=== PATIENT | female | born 1955 | race Caucasian/White ===

== ENCOUNTER 2018-06-29 20:16 | Outpatient (REF) | payer MEDICARE, BC, SELFPAY ==
[2018-07-01 12:29] LABS: Lyme Ab w Rflx to Lyme Confirm Negative
== END 2018-06-29 20:36 ==
LOC: NCHCN 20:16
PROVIDERS: PCP Nurse Practitioner Family; Referring Provider Physician Assistant Medical; Visit Provider Physician Assistant Medical
DX: L73.2 Hidradenitis suppurativa (principal); R53.83 Other fatigue
CPT/HCPCS: 86618

== ENCOUNTER 2018-07-02 08:05 | Emergency (ER) | payer MEDICARE, BC, SELFPAY ==
[2018-07-02 08:09] VITALS: BP 172/115; PULSE 72; RESP 16; TEMP 36.8; O2SAT 97
--- NOTE | 2018-07-02 09:08 | ED.GENADUL_ITS ---
Discharge Plan Disposition Patient Disposition: HOME Condition: Improving Discharge Details Chief Complaint: RashLesion Clinical Impression: Fatigue, Joint pain, Abdominal pain, Bacterial infection of skin Primary Care Provider: Dyana Ramirez ED Provider: Hiwot Lambert Home Meds and New Rx's Prescriptions: New cephalexin [Keflex] 500 mg capsule 500 mg PO QID 7 Days Qty: 28 RF: 0 No Action methylphenidate HCl [Concerta] 27 mg tablet extended release 24hr 27 mg PO DAILY Qty: 30 RF: 0 Atorvastatin Calcium 10 MG tablet 10 mg PO HS RF: 0 fluticasone-salmeterol [Advair Diskus] 1 EACH blister with device 2 puff Inhalation DAILY RF: 0 lisinopril 20 MG tablet 20 mg PO DAILY RF: 0 benzonatate 100 MG capsule 100 mg PO TID RF: 0 metformin 1,000 MG tablet 1,000 mg PO BID RF: 0 albuterol sulfate [ProAir RespiClick] 90 MCG aerosol powdr breath activated 90 mcg Inhalation PRN RF: 0 cephalexin 500 MG capsule 2,000 mg PO PRIOR TO DENTAL WORK RF: 0 betamethasone valerate 50 GM foam 50 gm Topical DAILY RF: 0 clotrimazole 45 GM cream 45 gm Topical PRN RF: 0 clobetasol-emollient 50 GM foam 50 gm Topical PRN RF: 0 Lorazepam 1 MG tablet 1 mg PO 1-2@HS Qty: 60 RF: 1 nitroglycerin 0.4 mg Tablet, Sublingual 0.4 mg SUBLINGUAL DIRECTED PRNRF: 0 metoprolol tartrate 25 mg Tablet 25 mg PO HS RF: 0 aspirin [Aspirin Low Dose] 81 mg Tablet,Delayed Release (Dr/Ec) 81 mg PO DAILY RF: 0 Discharge Instructions Instructions: Abdominal Pain (ED), Arthralgia (ED), Fatigue (ED) Additional Instructions: Drink plenty of fluids and get plenty of rest. Alternate Tylenol and Motrin as needed and directed for pain. Take the Vicodin that you have at home for pain not relieved with Tylenol or Motrin. Be sure to not take too much Tylenol as the Vicodin contains Tylenol. Take no more than 3000 mg Tylenol daily. Follow-up with your primary care doctor in 1 week for reevaluation and for results of your Lyme titer test. Return to the emergency department with any worsening or new concerning symptoms. Discharge Data Discharge Physician: Hiwot Lambert Medical Decision Making 62-year-old female with a history of diabetes, CAD, anxiety, diverticulitis who presents for multiple complaints. Her main complaint is diffuse abdominal pain which she described as constant, tearing and in the lower abdomen for the past 3 days. States it is worse with walking, sitting and with bumps in the robot driving. States it is better when lying on her left side. She states she has had boils across her lower abdomen for the past 3-6 weeks for which she saw her primary care doctor twice this week. She was given an antibiotic shot of which she does not know the name as well as clindamycin p.o. She stopped taking the antibiotic 2 days ago due to nausea, and the concern that she thinks this caused her lower abdominal pain. She states she does feel that her lower abdominal pain has improved since stopping the antibiotic. She does also admit to a multitude of other complaints including fatigue, aching joints, and decreased appetite over the past few weeks. She states she also talked to her primary care doctor for this and is concerned about possible Lyme disease. She states they rah a Lyme titer this week but she does not know the result. She otherwise denies known fever, chest pain, shortness of breath, urinary symptoms or diarrhea. She states her glucose has been between 120 and 150 Her multiple areas of skin infection are very minimally tender and do not appear significant. There is no indication for incision and drainage. She states overall she feels that they are improving. She does have an allergy to an antibiotic but does not know the name. She states she has tolerated Keflex in the past when she takes this for dental procedures due to her previous history of knee replacement. She last took Keflex 6 weeks ago. I discussed with patient that due to her multitude of complaints, we may not find the cause of everything. However as she is mainly complaining of lower abdominal pain and is concerned about a possible abscess due to her boils, or diverticulitis as she has had a previous history, we will place an IV, labs, urinalysis, CT abdomen to assess for diverticulitis versus a deeper skin infection. We can also rule out anemia, electrolyte abnormality, and altered kidney function or UTI. We will also give bolus IV fluids as well as Toradol. 1040 --patient states she feels much better and feels good to go home. Labs reviewed and unremarkable. Normal white blood cell count, electrolytes, lipase , urinalysis. CT negative for any acute process. We discussed at length that her symptoms could possibly be due to the clindamycin as she relates that they seem to have started after she started the antibiotics. She is instructed to stop this. We discussed that her multiple pannus boils do not appears significantly infected and there is no obvious abscess on CT. Patient is concerned about them worsening and with her history of knee replacement. Daughter states she has had reactions to antibiotics in the past with prolonged use, and agrees she would prefer Keflex. We discussed that as she takes this every 6 months to a year prophylactically but only for 1 day, it may not significantly work but due to the risk benefit ratio, agree that this would be the best choice at this time. Patient does have Vicodin at home that she has used in the past for her back pain. She is instructed to take this as needed for any significant pain. She otherwise is instructed to alternate Tylenol and Motrin. She is instructed to follow-up with her primary care doctor in 1 week for reevaluation and to return here with any worsening symptoms. HPI General Mode of arrival: ambulatory . Date/Time Provider Initiated Documentation: 07/02/18 08:18 . Limitations to Documentation: no limitations . Information obtained by: patient . HPI Narrative: Patient is a 62-year-old female with a history of asthma, anxiety , coronary artery disease, diabetes and diverticulitis who presents for multiple complaints. She admits to boils of her pannus for the past 3-6 weeks. She states she has these frequently but they became worse over the past 3 weeks. She usually can treated with hot compresses, Neosporin and corn starch. She saw her PCP for this on Wednesday and was given an antibiotic shot of which she does not know the name as well as a prescription for clindamycin p.o. She states she feels like she has had a reaction to the antibiotics and that it is because decreased appetite, abdominal pain, joint pain and a bad taste in her mouth . She stopped taking the clindamycin 2 days ago. She states she then followed up with her PCP again this week complaining of fatigue and they rah a Lyme titer. She had this done due to a previous complaint of a tick bite 1 year ago. She denies any known fever, bull's-eye rash. She states her abdominal pain is deep and feels like a tearing inside . And is located across her lower abdomen for the past 3 days. She states her last bowel movement was yesterday and denies any rectal bleeding. She describes the abdominal pain is constant, worse with walking, sitting and bumps in the road, and better with laying on her left side. She denies any nausea, vomiting, diarrhea. She saw her PCP again 2 days ago for the same complaint and was not given any additional treatment. She called the PCP office today and they were referred to the ER for further evaluation including possible labs or imaging if indicated. Past medical history: Asthma, anxiety, CAD, diabetes, diverticulitis Surgical history: Total knee replacement on left, tubal ligation Social history, smokes tobacco, denies alcohol or drug use Medications: See list Allergies: None none, but she thinks she might be allergic to an antibiotic. PCP: Dr. Meghann Miner Related Data Home Medications Medication Instructions Recorded Confirmed Atorvastatin Calcium 10 mg PO HS tab-cap 02/02/18 07/02/18 albuterol sulfate [Proair 90 mcg INHALATION PRN 02/02/18 07/02/18 Respiclick] benzonatate 100 mg PO TID tab-cap 02/02/18 07/02/18 betamethasone valerate 50 gm TOPICAL DAILY script 02/02/18 07/02/18 cephalexin 2,000 mg PO PRIOR TO DENTAL WORK 02/02/18 07/02/18 tab-cap clobetasol-emollient 50 gm TOPICAL PRN script 02/02/18 07/02/18 clotrimazole 45 gm TOPICAL PRN script 02/02/18 07/02/18 fluticasone-salmeterol [Advair 2 puff INHALATION DAILY disk 02/02/18 07/02/18 250/50 Diskus] lisinopril 20 mg PO DAILY tab-cap 02/02/18 07/02/18 metformin 1,000 mg PO BID tab-cap 02/02/18 07/02/18 methylphenidate ER 27 mg 27 mg PO DAILY #30 tab-cap 06/23/18 07/02/18 tablet,extended release 24 hr aspirin [Aspirin Low Dose] 81 mg PO DAILY 07/02/18 07/02/18 cephalexin [Keflex] 500 mg PO QID 7 Days #28 cap 07/02/18 metoprolol tartrate 25 mg PO HS 07/02/18 07/02/18 nitroglycerin 0.4 mg SUBLINGUAL DIRECTED PRN 07/02/18 07/02/18 Previous Rx's Medication Instructions Recorded methylphenidate ER 27 mg 27 mg PO DAILY #30 tab-cap 06/23/18 tablet,extended release 24 hr cephalexin [Keflex] 500 mg PO QID 7 Days #28 cap 07/02/18 Allergies Allergy/AdvReac Type Severity Reaction Status Date / Time No Known Allergies Allergy Unverified 07/02/18 08:21 General Stated Complaint: RashLesion ANIKA: 3 PFSH Social History Smoking/Tobacco Use Status: Current every day Course Vital Signs Temperature 98.2 F 07/02/18 08:09 Pulse 72 07/02/18 08:09 Respiratory Rate 16 07/02/18 08:09 Blood Pressure 172/115 H 07/02/18 08:09 Pulse Oximetry 97 07/02/18 08:09 Temperature 98.2 F 07/02/18 08:09 Temperature Source Temporal Artery Scan 07/02/18 08:09 Pulse 72 07/02/18 08:09 Respiratory Rate 16 07/02/18 08:09 Respiratory Effort Non-Labored 07/02/18 08:14 Blood Pressure 172/115 H 07/02/18 08:09 Pulse Oximetry 97 07/02/18 08:09 Oxygen Delivery Method Room Air 07/02/18 08:09 Oxygen Flow Rate 0 07/02/18 08:09 Pain Level 5 07/02/18 08:09
[2018-07-02 09:12] LABS: Abs Immature Grans 0.03 k/cumm (0.0-0.09); Absolute Basophil Count 0.06 k/cumm (0.0-0.2); Absolute Eosinophil Count 0.29 k/cumm (0.0-0.7); Absolute Lymphocyte Count 2.36 k/cumm (1.2-3.4); Absolute Monocyte Count 0.73 k/cumm (0.11-0.7); Basophils % 0.8; HCT 44.9 % (36.0-46.0); HGB 15.7 g/dL (12.0-15.5); Immature Grans % 0.4; Lymphocytes % 32.5; Mean Corpuscular Hemoglobin 32.6 pg (27.0-33.0); Mean Corpuscular Volume 93.2 fL (80-95); Mean Platelet Volume 10.2 fL (8.0-11.0); Neutrophils % 52.3; Platelet Count 248 x1000/uL (130-400); RBC 4.82 m/cumm (4.00-5.20); RBC Distribution Width 12.4 % (11.7-14.6); White Blood Cell Count 7.27 k/cumm (4.4-10.8)
[2018-07-02] MEDS: Ketorolac 30 MG/ML VIAL IVP (09:13)
[2018-07-02 09:14] LABS: Bilirubin Negative (Negative); Blood Negative (Negative); Clarity Clear; Glucose Negative (Negative); Ketones Negative (Negative); Leukocyte Esterase Negative (Negative); Nitrite Negative (Negative); Urobilinogen 0.2 EU/dL (Up TO 0.2); pH 5.5 (5-8)
[2018-07-02] MEDS: Normal Saline 250 ML 500 ML IV (09:14)
[2018-07-02 09:25] LABS: ALT 39 U/L (12-78); AST 24 U/L (15-37); Albumin 3.4 g/dL (3.4-5.0); Alkaline Phosphatase 71 U/L (46-116); Anion Gap 9.2 mmol/L (3-11); BUN 16 mg/dL (7-18); Bilirubin, Total 0.5 mg/dL (0.2-1.0); CO2 26.8 mmol/L (21.0-32.0); CREATININE 0.72 mg/dL (0.55-1.02); Calcium 8.9 mg/dL (8.5-10.1); Chloride 103 mmol/L (98-107); Glucose 157 mg/dL (70-100); Lipase 105 U/L (73-393); Potassium 4.3 mmol/L (3.5-5.1); Sodium 139 mmol/L (136-145); Total Protein 7.3 g/dL (6.4-8.2)
--- NOTE | 2018-07-02 10:00 | DI.CT_ITS ---
SYMPTOM/DIAGNOSIS: DIFFUSE ABD PAIN, SKIN ABSCESS, WORSE IN LOWER ABD. ABDOMINAL AND PELVIC CT: 07/02 CT examination was performed with a bolus infusion of 100 cc of Omnipaque 350. Images obtained through the lung bases were unremarkable. There are marked degenerative changes of the lumbosacral spine. Liver may be mildly enlarged and there is probable hepatic steatosis. Spleen is unremarkable in appearance. Gallbladder is absent. No biliary dilatation seen. Pancreas is unremarkable in appearance. No gross abdominal or pelvic adenopathy seen. Appendix is not specifically visualized but there is no evidence of appendicitis or diverticulitis. No evidence of bowel obstruction. Adrenals and kidneys are unremarkable in appearance. No evidence of urinary tract obstruction or calcification. Small fat containing ventral hernia noted. CONCLUSION: No evidence of acute intra-abdominal process.
--- NOTE | 2018-07-02 10:13 | DI.VRAD_ITS ---
EXAM: CT Abdomen and Pelvis With Intravenous Contrast EXAM DATE/TIME: 07/02/2018 9:10 AM CLINICAL HISTORY: 62 years old, female; Pain; Abdominal pain; Generalized; Patient HX: Diffuse abdominal pain, skin asbscess, worse in lower abdomen. Pain x2 days. TECHNIQUE: Axial computed tomography images of the abdomen and pelvis with intravenous contrast. All CT scans at this facility use at least one of these dose optimization techniques: automated exposure control; mA and/or kV adjustment per patient size (includes targeted exams where dose is matched to clinical indication); or iterative reconstruction. Coronal and sagittal reformatted images were created and reviewed. CONTRAST: 100 ml of omnipaque 350 administered intravenously. COMPARISON: CT ABD PELVIS WITH CONTRAST 08/11/2011 5:56 PM FINDINGS: Lower thorax: No acute findings. ABDOMEN: Liver: Normal. No mass. Gallbladder and bile ducts: Absent gallbladder consistent with previous cholecystectomy. Pancreas: Normal. No ductal dilation. Spleen: Normal. No splenomegaly. Adrenals: Normal. No mass. Kidneys and ureters: Normal. No hydronephrosis. Stomach and bowel: Moderate diverticulosis. Appendix: No evidence of appendicitis. PELVIS: Bladder: Unremarkable as visualized. Reproductive: Unremarkable as visualized. ABDOMEN and PELVIS: Intraperitoneal space: Normal. No free air. No significant fluid collection. Bones/joints: Moderate to severe multilevel degenerative changes including degenerative disc disease, spondylosis and facet degenerative changes. Soft tissues: Small umbilical/periumbilical hernia containing fat. Vasculature: There are one or more calcified pelvic phleboliths. Calcification of the abdominal aorta and/or iliac arteries consistent with atherosclerotic vessel disease. Lymph nodes: Normal. No enlarged lymph nodes. IMPRESSION: Moderate diverticulosis. Dictated and Authenticated by: Adán Hutchinson MD. Ordering:WALE BRIONES MD
[2018-07-02 10:57] VITALS: BP 139/86; PULSE 60; RESP 16; TEMP 36.8; O2SAT 96
== END 2018-07-02 11:10 | disposition home or self-care (01) ==
PROVIDERS: Emergency Provider Physician Assistant; PCP Nurse Practitioner Family
DX: R53.83 Other fatigue (principal); R10.30 Lower abdominal pain, unspecified; L08.9 Local infection of the skin and subcutaneous tissue, unspecified; M25.50 Pain in unspecified joint; T36.8X5A Adverse effect of other systemic antibiotics, initial encounter; E11.9 Type 2 diabetes mellitus without complications; Z79.84 Long term (current) use of oral hypoglycemic drugs
CPT/HCPCS: 36415; 80053; 83690; 96361; 96374; 99285; 74177; 81003; 85025; 99281; J1885

== ENCOUNTER 2018-07-29 00:44 | Outpatient (CLI) | payer MEDICARE, BC, SELFPAY ==
--- NOTE | 2018-07-29 13:00 | DI.CT_ITS ---
SYMPTOMS/DIAGNOSIS: F/U LUNG NODULE, R91.[address]: CT examination of the chest was performed without contrast administration using low dose scanning protocol. Previous chest CT of 01/24/2018 showed a 4 mm right middle lobe intrapulmonary nodule. This is again seen on today's examination and is unchanged. No new nodule identified in either lung. No pleural effusion. No mediastinal or hilar mass. CONCLUSION: Stable 4 mm right middle lobe nodule. Follow-up CT recommended in 12 months. Lung-RAD Category: 3- Probably Benign Lung- RAD Management of Findings: Continue annual LDCT screening in 12 months
== END 2018-07-29 01:04 ==
PROVIDERS: PCP Nurse Practitioner Family; Visit Provider Physician Assistant Medical
DX: R91.1 Solitary pulmonary nodule (principal)
CPT/HCPCS: 71250

== ENCOUNTER 2018-09-15 21:16 | Outpatient (REF) | payer MEDICARE, BC, SELFPAY ==
[2018-09-15 21:57] LABS: ALT 42 U/L (12-78); AST 19 U/L (15-37); Albumin 3.7 g/dL (3.4-5.0); Alkaline Phosphatase 60 U/L (46-116); BUN 17 mg/dL (7-18); Bilirubin, Total 0.6 mg/dL (0.2-1.0); CREATININE 0.67 mg/dL (0.55-1.02); Calcium 9.3 mg/dL (8.5-10.1); Chloride 102 mmol/L (98-107); Creatine Kinase 87 U/L (26-192); Glucose 146 mg/dL (70-100); Potassium 4.1 mmol/L (3.5-5.1); Sodium 140 mmol/L (136-145)
[2018-09-15 22:22] LABS: Abs Immature Grans 0.01 k/cumm (0.0-0.09); Absolute Basophil Count 0.03 k/cumm (0.0-0.2); Absolute Eosinophil Count 0.16 k/cumm (0.0-0.7); Absolute Lymphocyte Count 2.49 k/cumm (1.2-3.4); Absolute Monocyte Count 0.68 k/cumm (0.11-0.7); Absolute Neutrophil Count 3.85 k/cumm (1.2-6.7); Basophils % 0.4; Eosinophils % 2.2; HCT 44.6 % (36.0-46.0); HGB 15.6 g/dL (12.0-15.5); Immature Grans % 0.1; Lymphocytes % 34.5; Mean Corpuscular Hemoglobin 32.7 pg (27.0-33.0); Mean Corpuscular Volume 93.5 fL (80-95); Mean Platelet Volume 10.9 fL (8.0-11.0); Monocytes % 9.4; Neutrophils % 53.4; Platelet Count 224 x1000/uL (130-400); RBC 4.77 m/cumm (4.00-5.20); RBC Distribution Width 12.6 % (11.7-14.6); White Blood Cell Count 7.22 k/cumm (4.4-10.8)
[2018-09-15 23:35] LABS: ESR 14 MM/HR (0-30)
== END 2018-09-15 21:36 ==
LOC: NCHCN 21:16
PROVIDERS: PCP Nurse Practitioner Family; Visit Provider Nurse Practitioner Family
DX: R19.7 Diarrhea, unspecified (principal)
CPT/HCPCS: 80053; 82550; 85652; 85025

== ENCOUNTER 2018-09-19 11:13 | Outpatient (REF) | payer MEDICARE, BC, SELFPAY ==
[2018-09-20 11:01] LABS: Campylobacter PCR SEE COMMENTS; Salmonella PCR SEE COMMENTS; Shiga Toxin PCR SEE COMMENTS; Shigella/Enteroinvasive Ecoli SEE COMMENTS
[2018-09-22 11:59] LABS: Helicobacter pylori Ag, Feces Positive (NEGAT)
== END 2018-09-19 11:33 ==
LOC: NCHCN 11:13
PROVIDERS: PCP Nurse Practitioner Family; Visit Provider Nurse Practitioner Family
DX: R19.7 Diarrhea, unspecified (principal)
CPT/HCPCS: 87338; 87505; 82272; 83630

== ENCOUNTER 2018-11-17 10:59 | Outpatient (REF) | payer MEDICARE, BC, SELFPAY ==
[2018-11-17 21:21] LABS: Abs Immature Grans 0.07 k/cumm (0.0-0.09); Absolute Basophil Count 0.04 k/cumm (0.0-0.2); Absolute Eosinophil Count 0.22 k/cumm (0.0-0.7); Absolute Lymphocyte Count 3.07 k/cumm (1.2-3.4); Absolute Neutrophil Count 5.74 k/cumm (1.2-6.7); Basophils % 0.4; Eosinophils % 2.2; HCT 45.7 % (36.0-46.0); HGB 15.6 g/dL (12.0-15.5); Immature Grans % 0.7; Lymphocytes % 30.9; Mean Corp. HGB Concentration 34.1 g/dL (32.0-36.0); Mean Corpuscular Hemoglobin 32.2 pg (27.0-33.0); Mean Corpuscular Volume 94.4 fL (80-95); Mean Platelet Volume 10.8 fL (8.0-11.0); Neutrophils % 57.8; Platelet Count 262 x1000/uL (130-400); RBC 4.84 m/cumm (4.00-5.20); RBC Distribution Width 12.7 % (11.7-14.6); White Blood Cell Count 9.94 k/cumm (4.4-10.8)
[2018-11-17 21:44] LABS: TSH 0.97 uIU/mL (0.358-3.74)
[2018-11-17 22:07] LABS: Hemoglobin A1C 7.4 % (4.5-6.2)
== END 2018-11-17 11:19 ==
LOC: NCHCN 10:59
PROVIDERS: PCP Nurse Practitioner Family; Visit Provider Nurse Practitioner Family
DX: R53.83 Other fatigue (principal); R10.13 Epigastric pain; E11.9 Type 2 diabetes mellitus without complications
CPT/HCPCS: 83036; 84443; 85025

== ENCOUNTER 2018-11-21 14:55 | Outpatient (REF) | payer MEDICARE, BC, SELFPAY ==
[2018-11-24 14:39] LABS: Helicobacter pylori Ag, Feces Positive (NEGAT)
== END 2018-11-21 15:15 ==
LOC: NCHCO 14:55
PROVIDERS: PCP Nurse Practitioner Family; Visit Provider Nurse Practitioner Family
DX: R10.13 Epigastric pain (principal)
CPT/HCPCS: 87338

== ENCOUNTER 2018-12-28 12:16 | Outpatient (RCR) | payer SELFPAY | END 2019-01-01 23:59 | disposition home or self-care (01) | LOC: CR 12:16 | PROVIDERS: Visit Provider Family Medicine | DX: Z51.89 Encounter for other specified aftercare (principal) ==

== ENCOUNTER 2019-01-03 10:51 | Outpatient (REF) | payer MEDICARE, BC, SELFPAY ==
[2019-01-04 15:01] LABS: Helicobacter pylori Ag, Feces Positive (NEGAT)
== END 2019-01-03 11:11 ==
LOC: NCHCN 10:51
PROVIDERS: PCP Nurse Practitioner Family; Visit Provider Nurse Practitioner Family
DX: B96.81 Helicobacter pylori [H. pylori] as the cause of diseases classified elsewhere (principal)
CPT/HCPCS: 87338

== ENCOUNTER 2019-01-26 10:00 | Outpatient (RCR) | payer SELFPAY ==
--- NOTE | 2019-01-10 11:13 | PR3E_ITS ---
Sirisha Guo is a 63 year old female referred to our Diabetes Exercise program by her primary provider, Bella TOLENTINO. PMH: Anxiety, PTSD, depression, diverticulosis, ADD, RLS, HTN,HCL, STABLE ANGINA, GOUT, DJD, bilateral total knee replacements, Diabetes, , obesity, current smoker, sleep apnea 01/03/19: Pt presented for pre program intake, completed intake assessments, reviewed program description and expectations, and signed consents. At intake: Height 65 inches, Weight 249 lbs, BMI 41.4, BP 138/85, HR 66 bpm, Oxygen 96% on room air. Education: handout (living well with diabetes) provided, diabetes and exercise, and pt had an appointment set up on 01/04/19 w/ case management re:nutrition at her primary providers office. First day of Exercise: Patient presented on 01/10/19 for her first day of exercise. Pt appropriately filling out workbook with daily blood sugars and exercise. Resting vital signs: 145/87, HR 60, Blood sugar 121 (@ home), weight 244lbs.Pt tolerated 26 minutes of exercise in 6-7 minute increments on the treadmill, stationary bike, NuStep, and UBE. Her HR w/ exercise was 58-65 bpm, BP w/ exercise was 135-160/77-85. AGA scale ratings 9-11. Pt had no adverse signs or symptoms with exercise. She verbalized that her meeting at her primary cares office about diabetic diet went very well, she is keeping a daily food log and logging her sugars and exercise on a daily basis. Will continue to monitor, support, and encourage lifestyle modifications, diet, and exercise.
== END 2019-01-31 23:59 | disposition home or self-care (01) ==
LOC: CR 10:00
PROVIDERS: Visit Provider Family Medicine
DX: Z51.89 Encounter for other specified aftercare (principal)

== ENCOUNTER 2019-01-26 22:35 | Outpatient (REF) | payer MEDICARE, BC, SELFPAY | END 2019-01-26 22:55 | LOC: NCHCN 22:35 | PROVIDERS: PCP Nurse Practitioner Family; Visit Provider Nurse Practitioner Family | DX: N89.8 Other specified noninflammatory disorders of vagina (principal) | CPT/HCPCS: 87480; 87510; 87660 ==

== ENCOUNTER 2019-02-28 09:40 | Emergency (ER) | payer MEDICARE, BC, SELFPAY ==
[2019-02-28 09:50] VITALS: BP 182/88; PULSE 61; RESP 16; TEMP 36.6; O2SAT 98
[2019-02-28 09:58] LABS: Bilirubin Negative (Negative); Blood Negative (Negative); Clarity Clear; Glucose 500 mg/dL (Negative); Ketones Negative (Negative); Leukocyte Esterase Negative (Negative); Nitrite Negative (Negative); Urobilinogen 0.2 EU/dL (Up TO 0.2)
--- NOTE | 2019-02-28 10:26 | DI.CT_ITS ---
SYMPTOMS/DIAGNOSIS: LT FLANK PAIN, HX DIVERTIC, EVAL FOR DIVERTIC/STONES CT SCAN OF THE ABDOMEN AND PELVIS: CT scan of the abdomen and pelvis was performed following the uneventful administration of intravenous contrast material. Comparison is 07/02/18. No acute findings are seen in the lung bases. The liver is normal in size. No suspicious hepatic mass is seen. The portal, superior mesenteric and splenic veins are patent. The gallbladder appears absent. No biliary ductal dilatation is seen. The pancreas spleen and adrenal glands are unremarkable as are the kidneys, ureters and bladder. The reproductive organs are unremarkable. There is diverticulosis of the colon but evidence of acute diverticulitis. No evidence of bowel obstruction or inflammation. No findings to suggest an acute appendicitis are present. No significant abdominal or pelvic adenopathy, ascites or pneumoperitoneum is present. The abdominal aorta shows no aneurysmal dilatation. There is a fat containing umbilical hernia which is small. Degenerative changes are seen in the spine. IMPRESSION: No evidence of an acute abdominal or pelvic process. The findings were discussed with the emergency department on the date of the examination.
--- NOTE | 2019-02-28 10:51 | ED.GENADUL_ITS ---
Discharge Plan Disposition Patient Disposition: HOME Condition: Good Discharge Details Chief Complaint: Abd Prob Clinical Impression: Chronic left flank pain Primary Care Provider: Bella Coronado ED Provider: Chris Euceda Home Meds and New Rx's Prescriptions: New lidocaine [Lidoderm] 1 PATCH patch 1 patch Topical Q24H Qty: 4 RF: 0 No Action atorvastatin 10 mg tablet 10 mg PO DAILY RF: 0 mirtazapine 15 mg tablet 15 mg PO DAILY Qty: 30 RF: 3 fluticasone propion-salmeterol [Advair Diskus] 1 EACH blister with device 2 puff Inhalation DAILY RF: 0 metformin 1,000 MG tablet 1,000 mg PO BID RF: 0 ProAir RespiClick 90 MCG aerosol powdr breath activated 90 mcg Inhalation PRN RF: 0 cephalexin 500 MG capsule 2,000 mg PO PRIOR TO DENTAL WORK RF: 0 betamethasone valerate 50 GM foam 50 gm Topical DAILY RF: 0 clotrimazole 45 GM cream 45 gm Topical PRN RF: 0 clobetasol-emollient 50 GM foam 50 gm Topical PRN RF: 0 lisinopril 20 mg tablet 40 mg PO DAILY RF: 0 methylphenidate HCl [Concerta] 27 mg tablet extended release 24hr 27 mg PO DAILY MDD 1 Qty: 30 RF: 0 omega-3 fatty acids [Fish Oil Concentrate] 1,000 mg Capsule 1,000 mg PO BID RF: 0 carvedilol 3.125 mg Tablet 1 mg BID RF: 0 ranitidine HCl 75 mg Tablet 75 mg PO DAILY RF: 0 cholecalciferol (vitamin D3) [Vitamin D3] 400 unit Tablet 400 unit PO DAILY RF: 0 Jardiance 10 mg Tablet 10 mg PO DAILY RF: 0 nitroglycerin 0.4 mg Tablet, Sublingual 0.4 mg SUBLINGUAL DIRECTED PRNRF: 0 aspirin [Aspirin Low Dose] 81 mg Tablet,Delayed Release (Dr/Ec) 81 mg PO DAILY RF: 0 Discharge Instructions Instructions: Abdominal Pain (ED) Additional Instructions: Please follow-up with your manager terminal at your scheduled appointment. Please use the Lidoderm patch as directed. If you notice any worsening of your symptoms, or any new symptoms such as vomiting, diarrhea, fever, chills, shortness of breath, chest pain, numbness, weakness, or fainting , please return immediately to the emergency department for reevaluation. Please follow up with your primary care provider as soon as possible for reassessment and reevaluation. As always, it was a pleasure participating in your medical care today. Referrals: Bella Coronado [Primary Care Provider] - Medical Decision Making This is a pleasant 63-year-old female with past medical history of asthma, anxiety, coronary artery disease, diabetes and diverticulitis who presents today for evaluation of left-sided abdominal pain and flank pain that is been present for the last 4 to 5 weeks. Is been relatively unchanged as of late, however while she was at a physical activity event here at the hospital she developed slight worsening of the pain, she discussed it with the nursing staff there they recommended she come for further evaluation. She states that it is not severe, it is slightly improved when she stretches it. She denies any red flags of abdominal bowel complaints, urinary complaints, vaginal discharge or vomiting. Symptoms are both chronic as well as slightly atypical. Differential is most likely musculoskeletal, however also includes diverticulitis, renal stone, or gastritis. Get a CT scan to rule out colitis or stone, formal laboratory work-up, and give Lidoderm patch. 12:35 PM On reassessment the patient has mild improvement with a Lidoderm patch. Laboratory work-up has returned, no white count, no anemia, electrolyte abnormality, renal dysfunction, or urinary abnormality. Troponin normal, EKG benign. Lipase normal. CT scan per Dr. Jackson of radiology shows no acute process to explain the patient's symptoms. I had a long conversation with the patient, she still continues to demonstrate a nonsurgical nonacute abdomen on exam. Signs and symptoms are certainly concerning for muscle strain, however adhesions is also on the differential. She is able to tolerate p.o. well, vital signs are normal. Signs and symptoms are inconsistent with ACS. She does have a colonoscopy scheduled within the month. At this time with a benign work-up I do feel that she can be discharged home with close follow-up. We discussed red flags which to return. I have extensively reviewed the treatment plan and discharge instructions with the patient. I have addressed all patient concerns at this time. The patient was made aware of what symptoms to monitor for that would warrant a return to the emergency department. Discussed the plan with the patient, they demonstrate verbal understanding and agreement with our assessment and plan at this time. EKG 10: 33 Rate 52, intervals normal, sinus bradycardia, no significant ST elevations or depressions, no T wave inversions. HPI General Date/Time Provider Initiated Documentation: 02/28/19 09:41 . HPI Narrative: Patient is a 63-year-old female with a history of asthma, anxiety, coronary artery disease, diabetes and diverticulitis who presents today for evaluation of left flank pain. The patient states she has a history of notably chronic pain in her left side, she has been worked up multiple times, most recently she had 3 separate treatments for Helicobacter pylori. She did have some improvement of her symptoms a few weeks ago, however over the last 3 to 4 weeks it has returned. She denies any vomiting or diarrhea but does admit to mild nausea. She denies any dysuria or hematuria or vaginal discharge. She was at her cardiac activity center today and while doing activity she had slight to minimal worsening of this chronic pain. Worse in the left flank. Improved with stretching. She denies any associated numbness tingling or weakness. She denies any chest pain, chest heaviness, chest tightness or bandlike sensation. She denies any pain to her arm neck or shoulders. She has no other complaints or modifying factors at this time. She states that this does not feel like her previous cardiac episode. Related Data Home Medications Medication Instructions Recorded Confirmed albuterol sulfate [Proair 90 mcg INHALATION PRN 02/02/18 02/28/19 Respiclick] betamethasone valerate 50 gm TOPICAL DAILY script 02/02/18 02/28/19 cephalexin 2,000 mg PO PRIOR TO DENTAL WORK 02/02/18 02/28/19 tab-cap clobetasol-emollient 50 gm TOPICAL PRN script 02/02/18 02/28/19 clotrimazole 45 gm TOPICAL PRN script 02/02/18 02/28/19 fluticasone propion-salmeterol 2 puff INHALATION DAILY disk 02/02/18 02/28/19 [Advair 250/50 Diskus] metformin 1,000 mg PO BID tab-cap 02/02/18 02/28/19 aspirin [Aspirin Low Dose] 81 mg PO DAILY 07/02/18 02/28/19 nitroglycerin 0.4 mg SUBLINGUAL DIRECTED PRN 07/02/18 02/28/19 atorvastatin 10 mg tablet 10 mg PO DAILY 08/01/18 02/28/19 lisinopril 20 mg tablet 40 mg PO DAILY tab-cap 08/01/18 02/28/19 mirtazapine 15 mg tablet 15 mg PO DAILY #30 tab 08/24/18 02/28/19 methylphenidate ER 27 mg 27 mg PO DAILY #30 tab MDD 1 02/03/19 02/28/19 tablet,extended release 24 hr carvedilol 1 mg BID 02/28/19 02/28/19 cholecalciferol (vitamin D3) 400 unit PO DAILY 02/28/19 02/28/19 [Vitamin D3] empagliflozin [Jardiance] 10 mg PO DAILY 02/28/19 02/28/19 lidocaine [Lidoderm] 1 patch TOPICAL Q24H #4 patch 02/28/19 omega-3 fatty acids [Fish Oil 1,000 mg PO BID 02/28/19 02/28/19 Concentrate] ranitidine HCl 75 mg PO DAILY 02/28/19 02/28/19 Previous Rx's Medication Instructions Recorded mirtazapine 15 mg tablet 15 mg PO DAILY #30 tab 08/24/18 methylphenidate ER 27 mg 27 mg PO DAILY #30 tab MDD 1 02/03/19 tablet,extended release 24 hr lidocaine [Lidoderm] 1 patch TOPICAL Q24H #4 patch 02/28/19 Allergies Allergy/AdvReac Type Severity Reaction Status Date / Time clindamycin Allergy Intermediate Unverified 02/28/19 12:41 codeine Allergy Intermediate Unverified 02/28/19 12:41 metronidazole [From Flagyl] Allergy Intermediate Unverified 02/28/19 12:41 tetracycline Allergy Intermediate Unverified 02/28/19 12:41 acetaminophen [From Vicodin] Allergy Mild Unverified 02/28/19 12:41 bupropion [From Wellbutrin] Allergy Mild Unverified 02/28/19 12:41 fluoxetine [From Prozac] Allergy Mild Unverified 02/28/19 12:41 hydrocodone [From Vicodin] Allergy Mild Unverified 02/28/19 12:41 tramadol [From Ultram] Allergy Mild Unverified 02/28/19 12:41 venlafaxine [From Effexor] Allergy Mild Unverified 02/28/19 12:41 ziprasidone [From Geodon] Allergy Mild Unverified 02/28/19 12:41 General Stated Complaint: Abd Prob ANIKA: 3 Review of Systems Review of Systems All systems reviewed & are unremarkable except as noted in HPI and below PFSH Medical History Urinary incontinence (Chronic) Diverticulitis (Chronic) COPD (chronic obstructive pulmonary disease) (Chronic) Tobacco use (Acute) Depression (Chronic) Pelvic organ prolapse quantification stage 2 cystocele (Acute) Angina pectoris, unspecified (Chronic) Diabetes (Chronic) Elevated lipids (Chronic) Hypertension (Chronic) Abdominal pain (Acute) Abscess (Acute) Bruxism (teeth grinding) (Acute) Chest pain (Acute) Chronic myocardial ischemia (Acute) Fibroid uterus (Acute) Hidradenitis suppurativa (Acute) Lung nodule (Acute) Malaise and fatigue (Acute) Menopause (Acute) Pelvic pain (Acute) Post traumatic stress disorder (PTSD) (Acute) Snoring (Acute) Umbilical hernia (Acute) Anxiety (Chronic) Diverticulitis (Chronic) ALEA (obstructive sleep apnea) (Chronic) Obesity (Chronic) Surgical History Total knee replacement status (Acute) S/p bilateral carpal tunnel release (Acute) Hx of cholecystectomy (Chronic) History of bilateral tubal ligation (Inactive) Family History Mother Breast cancer Daughter Blood clotting disorder Other Diabetes Hypertension Social History Smoking/Tobacco Use Status: Current every day Tobacco Type: cigarettes Smoking cigarettes per day: 10 Drug use: Never Household members: spouse Number of Children: 4 Do you feel safe in your relationship?: Yes Female Reproductive History Menstrual Menopause type: natural History History 3 Para 3 Hx # Term Pregnancies Multiple births Hx # Pregnancies Ectopic pregnancies AB induced Hx Number of Living Children 4 AB spontaneous Exam Narrative Exam Narrative: 1.Const: Well-nourished, Well-developed, appearing stated age 2.Eyes: PERRL, no conjunctival injection, and symmetrical lids. 3.ENT: Atraumatic external nose and ears. Moist MM. Neck: Symmetric, trachea midline, No thyromegaly. 4.CVS: +S1/S2, No murmurs or gallops. Peripheral pulses 2+ and equal in all extremities. Brisk capillary refill in all extremities. 5.RESP: Unlabored respiratory effort. Clear to auscultation bilaterally. No wheezes rales or rhonchi 6.GI: Soft, Nondistended, No hepatosplenomegaly. No guarding or rebound. Mild left-sided abdominal tenderness, mild left CVA tenderness. Negative obturator and psoas sign. No pain at McBurney's point, negative Zavaleta sign. 7.MSK: Normocephalic/Atraumatic, Extremities w/o deformity or ttp No cyanosis or clubbing, Normal movement of all extremities 8.Skin: Warm, Dry. No rashes or lesions. 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 Sensation grossly intact, no focal neurologic deficits. 10.Psych: (AAO) x3. Appropriate mood and affect Course Vital Signs Temperature 36.6 C 02/28/19 09:50 Pulse 61 02/28/19 09:50 Respiratory Rate 16 02/28/19 09:50 Blood Pressure 182/88 H 02/28/19 09:50 Pulse Oximetry 98 02/28/19 09:50 Temperature 36.6 C 02/28/19 09:50 Temperature Source Skin 02/28/19 09:50 Pulse 61 02/28/19 09:50 Respiratory Rate 16 02/28/19 09:50 Respiratory Effort Non-Labored 02/28/19 09:50 Blood Pressure 182/88 H 02/28/19 09:50 Blood Pressure Position Sitting 02/28/19 09:50 Pulse Oximetry 98 02/28/19 09:50 Oxygen Delivery Method Room Air 02/28/19 09:50 Oxygen Flow Rate 0 02/28/19 09:50 Pain Level 7 02/28/19 09:50 Lab/Test Results Lab/Test Results: Laboratory Tests Range/Units 02/28/19 08:45 Urine Color (Yellow) Yellow Urine Clarity Clear Urine pH (5-8) 5.0 Ur Specific [place] (1.005-1.025) 1.010 Urine Protein (Negative) mg/dL Negative Urine Ketones (Negative) mg/dL Negative Urine Blood (Negative) Negative Urine Nitrite (Negative) Negative Urine Bilirubin (Negative) Negative Urine Urobilinogen (Up TO 0.2) EU/dL 0.2 Ur Leukocyte Esterase (Negative) Negative Urine Glucose (Negative) mg/dL 500 H
[2019-02-28] MEDS: Lidocaine 5% Patch 1 PATCH TP (11:02)
[2019-02-28 11:06] LABS: Abs Immature Grans 0.01 k/cumm (0.0-0.09); Absolute Basophil Count 0.04 k/cumm (0.0-0.2); Absolute Eosinophil Count 0.21 k/cumm (0.0-0.7); Absolute Lymphocyte Count 3.13 k/cumm (1.2-3.4); Absolute Monocyte Count 0.76 k/cumm (0.11-0.7); Absolute Neutrophil Count 3.69 k/cumm (1.2-6.7); Basophils % 0.5; Eosinophils % 2.7; HCT 45.8 % (36.0-46.0); HGB 15.9 g/dL (12.0-15.5); Immature Grans % 0.1; Lymphocytes % 39.9; Mean Corp. HGB Concentration 34.7 g/dL (32.0-36.0); Mean Corpuscular Hemoglobin 32.4 pg (27.0-33.0); Mean Corpuscular Volume 93.3 fL (80-95); Mean Platelet Volume 10.4 fL (8.0-11.0); Monocytes % 9.7; Neutrophils % 47.1; Platelet Count 255 x1000/uL (130-400); RBC 4.91 m/cumm (4.00-5.20); RBC Distribution Width 12.4 % (11.7-14.6); White Blood Cell Count 7.84 k/cumm (4.4-10.8)
[2019-02-28 11:16] LABS: ALT 38 U/L (12-78); AST 19 U/L (15-37); Albumin 3.7 g/dL (3.4-5.0); Alkaline Phosphatase 58 U/L (46-116); BUN 20 mg/dL (7-18); Bilirubin, Total 0.4 mg/dL (0.2-1.0); CREATININE 0.69 mg/dL (0.55-1.02); Calcium 9.3 mg/dL (8.5-10.1); Chloride 101 mmol/L (98-107); Glucose 108 mg/dL (70-100); Lipase 109 U/L (73-393); Potassium 4.2 mmol/L (3.5-5.1); Sodium 137 mmol/L (136-145); Total Protein 7.3 g/dL (6.4-8.2)
[2019-02-28 11:19] LABS: Troponin I < 0.02 ng/mL (0.00-0.06)
[2019-02-28] MEDS: Omnipaque 350 MG/ML 100 ML BTL IJ (11:37)
[2019-02-28 12:57] VITALS: BP 182/88; PULSE 61; RESP 16; TEMP 36.6; O2SAT 98
== END 2019-02-28 12:58 | disposition home or self-care (01) ==
PROVIDERS: Emergency Provider Student in an Organized Health Care Education/Training Program; PCP Nurse Practitioner Family
DX: R10.12 Left upper quadrant pain (principal); G89.29 Other chronic pain; R11.0 Nausea; E11.9 Type 2 diabetes mellitus without complications; Z79.84 Long term (current) use of oral hypoglycemic drugs; J44.9 Chronic obstructive pulmonary disease, unspecified; F17.210 Nicotine dependence, cigarettes, uncomplicated
CPT/HCPCS: 36415; 80053; 83690; 93005; 99285; 74177; 81003; 84484; 85025; 93010; 99284; J3490

== ENCOUNTER 2019-03-02 13:37 | Outpatient (RCR) | payer SELFPAY ==
--- NOTE | 2019-03-02 13:28 | PR3E_ITS ---
Sirisha is a 66 year old female who was referred to our 8 week diabetes management exercise program in December 2018. Patient was scheduled for 16 exercise sessions from 01/10/19 - 03/02/19, of which she attended 13. The patient had intermittent compliance with using the diabetes exercise booklet. She reported she was completing the booklet but often left it at home. The patient verbalized that she had enough equipment at home to continue exercising on her own. She was given a complete exercise prescription that included 8 - 10 total body resistance and balance exercise 2 - 3 days per week for 1 - 2 sets of 8 - 12 repetitions with 1 - 2 minute rests in between sets. She was also prescribed to aim for 150 minutes per week of moderate physical activity at an RPE of 12 - 13 on the AGA 6 - 20 scale. This could be achieved with small bouts of 10 - 30 minutes on most days of the week. Also, she was prescribed 8 - 10 static stretches to be completed after each exercise session held to mild discomfort for 2 - 4 sets lasting 10 - 30 seconds each. To complete this prescription she verbalized that she has equipment at home such as, small free weights, resistance bands, a rowing machine, an elliptical and a balance board. She also plans to add in walking and swimming during the Summer months. The patient verbalized that she was willing and able to give this prescription a try, and she was going to set goals for herself moving forward. She was also given suggestions of local community-based exercise programs should she want to vary her physical activity. Patient verbalized understanding of all exercises prescribed and demonstrations were completed. We will assist her again in the future, with a physicians referral, should she need more structure in developing an exercise routine/habits. Note: Exercise regimen closely monitored by cardiac rehabilitation internal salesperson Flor Ann who directed and prescribed patients home exercise plan.
== END 2019-03-03 23:59 | disposition home or self-care (01) ==
LOC: CR 13:37
PROVIDERS: PCP Nurse Practitioner Family; Visit Provider Family Medicine
DX: Z51.89 Encounter for other specified aftercare (principal)

== ENCOUNTER 2019-05-08 09:05 | Outpatient (REF) | payer MEDICARE, BC, SELFPAY ==
[2019-05-08 22:24] LABS: HDL Cholesterol 32 mg/dL (40-60); LDL CHOLESTEROL 74 mg/dL (<100)
== END 2019-05-08 09:25 ==
LOC: NCHCN 09:05
PROVIDERS: PCP Nurse Practitioner Family; Visit Provider Nurse Practitioner Family
DX: E78.5 Hyperlipidemia, unspecified (principal); L30.9 Dermatitis, unspecified
CPT/HCPCS: 83721; 83718

== ENCOUNTER 2019-08-07 01:28 | Outpatient (CLI) | payer MEDICARE, BC, SELFPAY ==
--- NOTE | 2019-08-07 14:56 | DI.CTLCSR_ITS ---
EXAM: CT CHEST LUNG CANCER SCREEN CLINICAL HISTORY: LUNG NODULE, R91.8,RML LUNG NODULE 4 MM NOTED LAST YR,FORMER SMOKER,Z87.891 TECHNIQUE: Low-dose noncontrast. COMPARISON: CT CHEST WO from 07/29/2018 FINDINGS: There is a stable, smoothly marginated, 4 millimeter nodule seen adjacent to the pleura in the right middle lobe. No new pulmonary nodules are seen. There is no evidence of infiltrates, pleural or pe ricardial effusions. No adenopathy is seen. Coronary artery calcifications are again noted. IMPRESSION: Lung rads category 2, yearly low-dose screening CT is recommended. Lung RADS Cat 2 - Benign Appearance / Behavior: Nodules with a very low likelihood of becoming a clin ically active caner due to size or lack of growth.
== END 2019-08-07 01:48 ==
PROVIDERS: PCP Nurse Practitioner Family; Visit Provider Nurse Practitioner Family
DX: Z12.2 Encounter for screening for malignant neoplasm of respiratory organs (principal); R91.8 Other nonspecific abnormal finding of lung field; Z87.891 Personal history of nicotine dependence
CPT/HCPCS: G0297

== ENCOUNTER 2019-10-09 10:11 | Outpatient (REF) | payer MEDICARE, BC, SELFPAY ==
[2019-10-09 21:59] LABS: Vitamin D 25 Total 21.4 ng/ml (30-100)
[2019-10-09 22:07] LABS: Ferritin 100 ng/mL (8-252); Magnesium 1.4 mg/dL (1.8-2.4)
== END 2019-10-09 10:31 ==
LOC: NCHCN 10:11
PROVIDERS: PCP Nurse Practitioner Family; Visit Provider Nurse Practitioner Family
DX: E11.9 Type 2 diabetes mellitus without complications (principal); G25.81 Restless legs syndrome; E55.9 Vitamin D deficiency, unspecified; B35.4 Tinea corporis; L21.9 Seborrheic dermatitis, unspecified
CPT/HCPCS: 82306; 82728; 83735

== ENCOUNTER 2020-06-12 10:22 | Outpatient (REF) | payer MEDICARE, BC, SELFPAY ==
[2020-06-12 21:39] LABS: HCT 47.2 % (36.0-46.0); HGB 16.3 g/dL (11.2-15.7); MCH 33.2 pg (27.0-33.0); MCHC 34.5 % (32.0-36.0); MCV 96.1 fL (80-95); Platelet Count 240 10^3/uL (130-400); RBC 4.91 10^6/uL (3.93-5.22); RDW 12.6 % (11.7-14.6); RDW-SD 44.7 fL; WBC 7.47 10^3/uL (4.4-10.8)
[2020-06-12 22:17] LABS: ALT 31 U/L (14-59); AST 13 U/L (15-37); HDL Cholesterol 32 mg/dL (40-60); LDL CHOLESTEROL 80 mg/dL (<100); Magnesium 1.8 mg/dL (1.8-2.4); TSH 1.01 uIU/mL (0.36-3.74); Vitamin B12 748 pg/mL (193-986)
[2020-06-12 22:35] LABS: Creatine Kinase 96 U/L (26-192)
== END 2020-06-12 10:42 ==
LOC: NCHCN 10:22
PROVIDERS: PCP Nurse Practitioner Family; Visit Provider Nurse Practitioner Family
DX: E78.5 Hyperlipidemia, unspecified (principal); E61.2 Magnesium deficiency; Z79.899 Other long term (current) drug therapy; R53.83 Other fatigue; I10 Essential (primary) hypertension
CPT/HCPCS: 82550; 83721; 85027; 82607; 83718; 83735; 84443; 84450; 84460

== ENCOUNTER 2020-07-25 09:16 | Outpatient (CLI) | payer MEDICARE, BC, SELFPAY ==
[2020-07-28 02:58] LABS: Patient Race White; SARS-CoV-2 RNA Undetected (Undetected); SARS-CoV-2 Specimen Source Nasal
== END 2020-07-25 09:36 ==
PROVIDERS: PCP Nurse Practitioner Family; Visit Provider Nurse Practitioner Family
DX: J06.9 Acute upper respiratory infection, unspecified (principal)
CPT/HCPCS: U0003

== ENCOUNTER 2020-08-06 10:05 | Emergency (ER) | payer MEDICARE, BC, SELFPAY ==
[2020-08-06 10:09] VITALS: BP 148/104; PULSE 70; RESP 18; TEMP 36.6; O2SAT 99
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
--- NOTE | 2020-08-06 10:15 | RT.EKG_ITS ---
APPROVED REPORT Exam: Resting ECG Patient Location: E HR:59 bpm ECG Measurements Heart Rate 59 AXIS MI 155 P 53 QRSd 98 QRS -5 QT 379 T 23 QTc 377 Conclusion Sinus bradycardia. Rate 60, No st elevation
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
[2020-08-06 11:40] VITALS: BP 146/90; PULSE 70; RESP 18; TEMP 36.6; O2SAT 99
== END 2020-08-06 11:25 | disposition home or self-care (01) ==
PROVIDERS: Emergency Provider Emergency Medicine; PCP Nurse Practitioner Family
DX: S16.1XXA Strain of muscle, fascia and tendon at neck level, initial encounter (principal); S20.212A Contusion of left front wall of thorax, initial encounter; V43.52XA Car driver injured in collision with other type car in traffic accident, initial encounter; E11.9 Type 2 diabetes mellitus without complications; Z79.84 Long term (current) use of oral hypoglycemic drugs; J44.9 Chronic obstructive pulmonary disease, unspecified; F17.210 Nicotine dependence, cigarettes, uncomplicated; I10 Essential (primary) hypertension; R51.9 Headache, unspecified
CPT/HCPCS: 93005; 99284; 70450; 71046; 72125; 93010

== ENCOUNTER 2020-08-15 13:03 | Outpatient (CLI) | payer MEDICARE, BC, SELFPAY ==
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
== END 2020-08-15 13:23 ==
PROVIDERS: PCP Nurse Practitioner Family; Visit Provider Nurse Practitioner Family
DX: M54.5 Low back pain (principal); M47.816 Spondylosis without myelopathy or radiculopathy, lumbar region; M16.0 Bilateral primary osteoarthritis of hip; R10.32 Left lower quadrant pain
CPT/HCPCS: 72110; 72220; 73502

== ENCOUNTER 2020-08-28 00:35 | Outpatient (CLI) | payer MEDICARE, BC, SELFPAY ==
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
== END 2020-08-28 00:55 ==
PROVIDERS: PCP Nurse Practitioner Family; Visit Provider Nurse Practitioner Family
DX: M48.061 Spinal stenosis, lumbar region without neurogenic claudication (principal); M51.16 Intervertebral disc disorders with radiculopathy, lumbar region
CPT/HCPCS: 72148

== ENCOUNTER 2020-12-17 20:39 | Outpatient (REF) | payer MEDICARE, BC, SELFPAY ==
[2020-12-17 19:42] LABS: Anion Gap 12.2 mmol/L (3-11); BUN 20 mg/dL (7-18); CO2 24.8 mmol/L (21.0-32.0); CREATININE 0.8 mg/dL (0.55-1.02); Chloride 102 mmol/L (98-107); Glucose 182 mg/dL (74-106); Potassium 4.4 mmol/L (3.5-5.1); Sodium 139 mmol/L (136-145)
== END 2020-12-17 20:40 | disposition home or self-care (01) ==
LOC: NCHCN 20:39
PROVIDERS: PCP Nurse Practitioner Family; Visit Provider Nurse Practitioner Family
DX: I10 Essential (primary) hypertension (principal)
CPT/HCPCS: 80048

== ENCOUNTER 2021-03-26 01:30 | Outpatient (CLI) | payer MEDICARE, BC, SELFPAY ==
--- NOTE | 2021-03-26 09:04 | DI.CTLCSR_ITS ---
Exam(s) CT CHEST LUNG CANCER SCREEN EXAM: CT CHEST LUNG CANCER SCREEN CLINICAL HISTORY: SCREENING FOR LUNG CA, CURRENT SMOKER, F17.210. TECHNIQUE: Imaging Protocol: Low Dose Technique CONTRAST MATERIAL: None COMPARISON: CT CT CHEST LUNG CANCER SCREEN from 08/07/2019 FINDINGS: CHEST: LUNGS: There is again noted a stable subpleural 4 millimeter noncalcified nodule in the lateral segme nt of the right middle lobe, again unchanged. A pseudo nodule at the pleural reflection between the right upper and right middle lobes is also unchanged. There are no new nodules in either lung field. Unchanged benign-appearing markings are seen medially adjacent to the spinal column in the right lo wer lobe. No pleural effusions. MEDIASTINUM: There is no obvious hilar nor mediastinal adenopathy. CARDIAC: Heart size is normal. There is no pericardial effusion.Caliber of the thoracic aorta is wit hin normal limits. OTHER: OSSEOUS: No significant osseous lesions.. IMPRESSION: 1. Stable benign-appearing findings, as described above. 2. No new nodules, pleural effusions, nor intrathoracic adenopathy. 3. Lung RADS Cat 2 - Benign Appearance / Behavior: Nodules with a very low likelihood of becoming a c linically active cancer due to size or lack of growth Lung-RADS 1.0 CATEGORIES: Category 0 - Prior chest CT exam(s) being located for comparison. Category 1 - Annual screening in 12 months. No nodules or definitely benign nodules. Category 2 - Annual screening in 12 months. Benign appearance. Nodules with low likelihood of becomin g active cancer. Category 3 - 6-month follow-up. Probably benign. Short-term follow-up suggested. Nodules with low lik elihood of becoming active cancer. Category 4A - 3-month follow-up and CT/PET if >8 mm in size. Suspicious finding. Findings which requi re additional testing. Category 4B - Findings which require additional testing and tissue sampling. Modifier S- Potentially clinically significant findings (non lung cancer) RADIATION DOSE DELIVERED: 98.86mGy.cm Total DLP 2.21mGy CTDIvol DATA REPOSITORY: All CT scans at this facility are submitted to the National Radiology Data Registry (NRDR) Dose Index Registry (DIR) with the [employer] ([employer]). RADIATION OPTIMIZATION: All CT scans at this facility use at least one of these dose optimization te chniques: automated exposure control; mA and/or kV adjustment per patient size (includes targeted exa ms where dose is matched to clinical indication); or iterative reconstruction.
== END 2021-03-26 01:50 ==
PROVIDERS: PCP Nurse Practitioner Family; Visit Provider Nurse Practitioner Family
DX: Z12.2 Encounter for screening for malignant neoplasm of respiratory organs (principal); R91.8 Other nonspecific abnormal finding of lung field; F17.210 Nicotine dependence, cigarettes, uncomplicated
CPT/HCPCS: 71271

== ENCOUNTER 2021-06-11 10:34 | Outpatient (REF) | payer MEDICARE, BC, SELFPAY ==
[2021-06-11 17:04] LABS: HCT 47.6 % (36.0-46.0); HGB 16.5 g/dL (11.2-15.7); MCHC 34.7 % (32.0-36.0); MCV 95.2 fL (80-95); MPV 10.9 fL (8.0-11.0); Platelet Count 234 10^3/uL (130-400); RDW 12.2 % (11.7-14.6); RDW-SD 42.9 fL; WBC 7.84 10^3/uL (4.4-10.8)
[2021-06-11 17:15] LABS: Anion Gap 9.7 mmol/L (3-11); BUN 17 mg/dL (7-18); CO2 25.3 mmol/L (21.0-32.0); CREATININE 0.7 mg/dL (0.55-1.02); Calcium 9.1 mg/dL (8.5-10.1); Chloride 104 mmol/L (98-107); Glucose 112 mg/dL (74-106); Potassium 4.3 mmol/L (3.5-5.1); Sodium 139 mmol/L (136-145)
[2021-06-11 17:34] LABS: Hemoglobin A1C 6.4 % (<5.7)
== END 2021-06-11 10:35 | disposition home or self-care (01) ==
LOC: NCHCN 10:34
PROVIDERS: PCP Nurse Practitioner Family; Referring Provider Nurse Practitioner Family; Visit Provider Nurse Practitioner Family
DX: Z01.818 Encounter for other preprocedural examination (principal)
CPT/HCPCS: 80048; 85027; 83036

== ENCOUNTER 2021-07-21 13:41 | Outpatient (REF) | payer MEDICARE, BC, SELFPAY | END 2021-07-21 13:42 | disposition home or self-care (01) | LOC: NCHCN 13:41 | PROVIDERS: PCP Nurse Practitioner Family; Visit Provider Nurse Practitioner Family | DX: R30.0 Dysuria (principal); R31.9 Hematuria, unspecified; M54.89 Other dorsalgia | CPT/HCPCS: 87077; 87086 ==

== ENCOUNTER 2021-07-21 15:41 | Emergency (ER) | payer MEDICARE, BC, SELFPAY ==
[2021-07-21 15:52] VITALS: PULSE 86; RESP 18; TEMP 36.5; O2SAT 96
--- NOTE | 2021-07-21 16:00 | DI.CT_ITS ---
Exam(s) CT RENAL COLIC WO EXAM: CT RENAL COLIC WO CLINICAL HISTORY: bilateral flank pain. TECHNIQUE: Imaging Protocol: Axial computed tomography images with coronal and sagittal reformatted images were created and reviewed. COMPARISON: CT CT ABDOMEN PELVIS W from 02/28/[address] ABDOMEN PELVIS W from 02/28/2019 FINDINGS: The examination is limited due to patient motion artifact. ABDOMEN: Lung Bases: Normal where visualized. Liver: Normal density. No measurable mass. The liver measures 20 cm long. The liver appears have a n odular contour raising the question of hepatic cirrhosis. Gallbladder and biliary tract: Status post cholecystectomy. No biliary ductal dilatation. Pancreas: Normal density, no abnormal calcifications or inflammatory process. Spleen: Normal. Kidneys: Normal size, contour and axis.No radiodense stones or obstructive uropathy. No masses seen. Calcifications in the retroperitoneum appear to be vascular when compared to the prior examination. Adrenal glands: No mass is seen. Lymph nodes: Within normal limits. Abdominal Aorta: Abdominal portion non-dilated. Atherosclerosis. PELVIS: Bladder:Incompletely distended. There does appear to be a small focus of intraluminal air. This may be secondary to recent instrumentation. Please correlate clinically. There is thickening of the wa ll of the urinary bladder. This may be due to underdistention, an infectious/inflammatory process ca nnot be excluded. Bowel: No obstruction or bowel wall thickening. No evidence of appendicitis. There is diverticulosis of the colon, but no evidence of acute diverticulitis. Peritoneal cavity: No ascites, collection or mesenteric inflammatory response. No free air. Reproductive organs: Within normal limits. Bones: Within normal limits. Soft Tissues: There is a supraumbilical anterior abdominal wall fat containing hernia. There are 2 s mall fat containing periumbilical hernia. IMPRESSION: 1. Incompletely distended urinary bladder. There is a small focus of intraluminal air within the caitlin dder. Please correlate for evidence of recent instrumentation. Thickening of the wall of the gallbl adder may be due to underdistention, but an infectious or inflammatory process cannot be excluded. P lease correlate clinically. 2. Hepatomegaly and question of hepatic cirrhosis. 3. Colonic diverticulosis but no evidence of acute diverticulitis. RADIATION DOSE DELIVERED: 1,180.94mGy.cm Total DLP DATA REPOSITORY: All CT scans at this facility are submitted to the National Radiology Data Registry (NRDR) Dose Index Registry (DIR) with the [employer] ([employer]). RADIATION OPTIMIZATION: All CT scans at this facility use at least one of these dose optimization te chniques: automated exposure control; mA and/or kV adjustment per patient size (includes targeted exa ms where dose is matched to clinical indication); or iterative reconstruction.
--- NOTE | 2021-07-21 16:12 | ED.GENADUL_ITS ---
Discharge Plan Disposition Patient Disposition: HOME Condition: Stable Discharge Details Clinical Impression: Flank pain, Acute pyelonephritis Primary Care Provider: Bella Coronado ED Provider: Adán Torres Greenwood Meds and New Rx's Prescriptions: New levofloxacin 750 mg tablet 750 mg PO DAILY Qty: 6 RF: 0 Continued atorvastatin 10 mg tablet 10 mg PO DAILY RF: 0 mirtazapine 15 mg tablet 15 mg PO DAILY Qty: 30 RF: 3 methylphenidate HCl [Concerta] 27 mg tablet extended release 24hr 27 mg PO DAILY MDD 1 Qty: 30 RF: 0 fluticasone propion-salmeterol [Advair Diskus] 1 EACH blister with device 2 puff Inhalation DAILY RF: 0 metformin 1,000 MG tablet 1,000 mg PO BID RF: 0 ProAir RespiClick 90 MCG aerosol powdr breath activated 90 mcg Inhalation PRN RF: 0 cephalexin 500 MG capsule 2,000 mg PO PRIOR TO DENTAL WORK RF: 0 betamethasone valerate 50 GM foam 50 gm Topical DAILY RF: 0 clotrimazole 45 GM cream 45 gm Topical PRN RF: 0 clobetasol-emollient 50 GM foam 50 gm Topical PRN RF: 0 lisinopril 20 mg tablet 40 mg PO DAILY RF: 0 omega-3 fatty acids [Fish Oil Concentrate] 1,000 mg Capsule 1,000 mg PO BID RF: 0 carvedilol 3.125 mg Tablet 3.125 mg PO BID RF: 0 ranitidine HCl 75 mg Tablet 75 mg PO DAILY RF: 0 cholecalciferol (vitamin D3) [Vitamin D3] 400 unit Tablet 1,000 unit PO DAILY RF: 0 Jardiance 10 mg Tablet 10 mg PO DAILY RF: 0 lidocaine [Lidoderm] 1 PATCH patch 1 patch Topical Q24H Qty: 4 RF: 0 nitroglycerin 0.4 mg Tablet, Sublingual 0.4 mg SUBLINGUAL DIRECTED PRNRF: 0 aspirin [Aspirin Low Dose] 81 mg Tablet,Delayed Release (Dr/Ec) 81 mg PO DAILY RF: 0 cyclobenzaprine 10 mg tablet 10 mg PO TID RF: 0 tramadol 50 mg tablet 50 mg PO BID RF: 0 clindamycin phosphate 1 % gel 1 applic TOPICAL PRN PRNRF: 0 benzonatate 100 mg capsule 100 mg PO TID PRNRF: 0 gabapentin 100 mg capsule 100 mg PO QHS RF: 0 lisinopril 40 mg tablet 40 mg PO DAILY RF: 0 lamotrigine 100 mg tablet 100 mg PO DAILY RF: 0 ciprofloxacin-dexamethasone 0.3-0.1 % drops,suspension 4 drp otic (ear) BID RF: 0 lhtv-[id number]-fer 250 mg-400 unit -40 mg-5 mg Tablet 1 tab PO DAILY RF: 0 Discharge Instructions Additional Instructions: You had a cat scan that did not show a kidney stone, you do have a nodule liver which your primary care provider should be made aware of you could have had a small kidney stone that passed prior to the cat scan you had blood work including a complete blood count and metabolic panel with no significant abnormalities your urine test showed blood cells, white cells and bacteria and could indicate a kidney infection so you are being started on antibiotics follow up with your primary care provider within 1 week if you feel more ill, have severe worsening pain, or persistent vomit return to the emergency department Medical Decision Making 65 yo female with hx of copd, dm, htn, who comes in with chief complaint of painful urinating since wednesday and today had a fever to 101 and has had 2 days of bilateral flank pain and lower back pain. She denies chest pain, dyspnea, has chronic dry cough that is unchanged from baseline. SHe has no headache or neck stiffness. She is in no distress on exam. SHe has no abdominal tenderness. SHe does have bilateral cva tenderness, no midline back pain, no rashes. Symptoms concerning for pyelo vs kidney stone, will obtain labs and renal colic ct. Also has no pleuritic back or chest pain , no hypoxia or tachycardia so doubt PE. 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 Will tx with levofloxacin while ct pending ct shows ?cirrhosis with hepatomegaly but denies heavy alcohol use now or in the past and is not in clinical liver failure, advised her of this and to f/u with pcp. Has chronic umbilical hernia and has no tenderness of it so doubt incarceration and strangulation. She could have had a kidney stone that passed given her symptoms improved earlier but will treat as possible pyelo. She is stable for outpatient management and advised to f/u with pcp and return precautions given Differential Diagnosis Differential Diagnosis: kidney stone, pyelo, uti Medical Records Medical records reviewed: Yes I reviewed the patient's medical records. Imaging Data Radiologic Study: Attestation: I personally reviewed and interpreted this imaging study as follows: Imaging: CT Scan Radiologist's impression: IMPRESSION: Suspect cirrhosis. Clinical correlation is recommended. Hepatomegaly. Arteriosclerotic changes of the aorta. Osseous findings as above. Status post cholecystectomy. Umbilical hernia. Lab Data Lab results reviewed: Yes I reviewed the patient's lab results. HPI General Mode of arrival: ambulatory . Date/Time Provider Initiated Documentation: 07/21/21 15:42 . Limitations to Documentation: no limitations . Information obtained by: patient . History of Present Illness 65 year old F presents to the emergency department with the chief complaint of difficulty urinating, described as moderate, Quality is described as aching, Patient reports no radiation. Patient started experiencing this day(s) (3) and it has been constant. No relieving factors improve symptom(s), No exacerbating factors reported . Patient notes fever/chills. Patient did receive the following treatments prior to arrival, none Related Data Home Medications Medication Instructions Recorded Confirmed ProAir RespiClick 90 mcg INHALATION PRN 02/02/18 07/21/21 betamethasone valerate 50 gm TOPICAL DAILY script 02/02/18 08/06/20 cephalexin 2,000 mg PO PRIOR TO DENTAL WORK 02/02/18 07/21/21 tab-cap clobetasol-emollient 50 gm TOPICAL PRN script 02/02/18 08/06/20 clotrimazole 45 gm TOPICAL PRN script 02/02/18 08/06/20 fluticasone propion-salmeterol 2 puff INHALATION DAILY disk 02/02/18 07/21/21 [Advair Diskus] metformin 1,000 mg PO BID tab-cap 02/02/18 07/21/21 aspirin [Aspirin Low Dose] 81 mg PO DAILY 07/02/18 08/06/20 nitroglycerin 0.4 mg SUBLINGUAL DIRECTED PRN 07/02/18 08/06/20 atorvastatin 10 mg tablet 10 mg PO DAILY 08/01/18 07/21/21 lisinopril 20 mg tablet 40 mg PO DAILY tab-cap 08/01/18 08/06/20 mirtazapine 15 mg tablet 15 mg PO DAILY #30 tab 08/24/18 08/06/20 Jardiance 10 mg PO DAILY 02/28/19 07/21/21 carvedilol 3.125 mg PO BID 02/28/19 07/21/21 cholecalciferol (vitamin D3) 1,000 unit PO DAILY 02/28/19 07/21/21 [Vitamin D3] lidocaine [Lidoderm] 1 patch TOPICAL Q24H #4 patch 02/28/19 08/06/20 omega-3 fatty acids [Fish Oil 1,000 mg PO BID 02/28/19 07/21/21 Concentrate] ranitidine HCl 75 mg PO DAILY 02/28/19 08/06/20 methylphenidate HCl 27 mg 27 mg PO DAILY #30 tab MDD 1 04/06/19 07/21/21 tablet,extended release 24 hr benzonatate 100 mg PO TID PRN 07/21/21 07/21/21 [id number] 1 tab PO DAILY 07/21/21 07/21/21 ciprofloxacin-dexamethasone 4 drp OTIC (EAR) BID 07/21/21 07/21/21 clindamycin phosphate 1 applic TOPICAL PRN PRN 07/21/21 07/21/21 cyclobenzaprine 10 mg PO TID 07/21/21 07/21/21 gabapentin 100 mg PO QHS 07/21/21 07/21/21 lamotrigine 100 mg PO DAILY 07/21/21 07/21/21 levofloxacin 750 mg PO DAILY #6 tab 07/21/21 lisinopril 40 mg PO DAILY 07/21/21 07/21/21 tramadol 50 mg PO BID 07/21/21 07/21/21 Previous Rx's Medication Instructions Recorded mirtazapine 15 mg tablet 15 mg PO DAILY #30 tab 08/24/18 lidocaine [Lidoderm] 1 patch TOPICAL Q24H #4 patch 02/28/19 methylphenidate HCl 27 mg 27 mg PO DAILY #30 tab MDD 1 04/06/19 tablet,extended release 24 hr levofloxacin 750 mg PO DAILY #6 tab 07/21/21 Allergies Allergy/AdvReac Type Severity Reaction Status Date / Time clindamycin Allergy Intermediate Unverified 07/21/21 15:49 codeine Allergy Intermediate Unverified 07/21/21 15:49 metronidazole [From Flagyl] Allergy Intermediate Unverified 07/21/21 15:49 tetracycline Allergy Intermediate Unverified 07/21/21 15:49 acetaminophen [From Vicodin] Allergy Mild Unverified 07/21/21 15:49 bupropion [From Wellbutrin] Allergy Mild Unverified 07/21/21 15:49 fluoxetine [From Prozac] Allergy Mild Unverified 07/21/21 15:49 hydrocodone [From Vicodin] Allergy Mild Unverified 07/21/21 15:49 tramadol [From Ultram] Allergy Mild Unverified 07/21/21 15:49 venlafaxine [From Effexor] Allergy Mild Unverified 07/21/21 15:49 ziprasidone [From Geodon] Allergy Mild Unverified 07/21/21 15:49 General Stated Complaint: FlankPain ANIKA: 3 Review of Systems All systems reviewed & are unremarkable except as noted in HPI and below Constitutional Constitutional: Denies chills, Denies fever(s) and Denies weakness Cardiovascular Cardiovascular: Denies chest pain and Denies dyspnea Respiratory Respiratory: Denies cough and Denies dyspnea Gastrointestinal Gastrointestinal: Denies vomiting Musculoskeletal Musculoskeletal: Denies joint swelling Neurologic Neurologic: Denies weakness [facility] Medical History Abdominal pain Abscess Angina pectoris, unspecified Anxiety Bruxism (teeth grinding) Chest pain Chronic myocardial ischemia COPD (chronic obstructive pulmonary disease) Depression Diabetes Diverticulitis Diverticulitis Elevated lipids Fibroid uterus Hidradenitis suppurativa Hypertension Lung nodule Malaise and fatigue Menopause Obesity ALEA (obstructive sleep apnea) Pelvic organ prolapse quantification stage 2 cystocele Patient was educated regarding the exam findings. She declines pessary or discussion regarding surgical options. Pelvic pain Post traumatic stress disorder (PTSD) Snoring Tobacco use Umbilical hernia Urinary incontinence Currently she does not feel that her symptoms are significant enough to vanessa ant additional treatment Surgical History History of bilateral tubal ligation Hx of cholecystectomy S/p bilateral carpal tunnel release Total knee replacement status Bilateral Family History (Updated 08/01/18 @ 20:16 by Carmen Arevalo MD) Mother Breast cancer Daughter Blood clotting disorder Other Diabetes Hypertension Social History Smoking/Tobacco Use Status: Current every day Tobacco Type: cigarettes Smoking risk assessment performed?: Yes Alcohol Intake: never Drug use: Never Substance use type: does not use Household members: spouse Number of Children: 4 Do you feel safe at home: Yes Do you feel safe in your relationship?: Yes Female Reproductive History Menstrual Menopause type: natural History History 3 Para 3 Hx # Term Pregnancies Multiple births Hx # Pregnancies Ectopic pregnancies AB induced Hx Number of Living Children 4 AB spontaneous Exam Const General: no acute distress Orientation: alert HENMT Head: normal to inspection Ears: external ears normal General nose exam: external nose normal Mouth: moist mucous membranes Eyes General: appearance normal, both eyes and all related structures Neck Neck: normal visual inspection Resp Effort & Inspection: normal respiratory effort and able to speak in complete sentences Cardio Rate: regular rate GI Palpation: soft and nontender Back/Spine/Pelvis Back: CVA tenderness Skin General skin exam: no rashes or lesions noted Neuro General: patient alert and patient oriented x3 Extrem General: normal to inspection Psych Mental Status: mental status grossly normal Course Vital Signs Vital signs: Vital Signs Temperature 36.5 C 07/21/21 15:52 Pulse 86 07/21/21 15:52 Respiratory Rate 18 07/21/21 15:52 Pulse Oximetry 96 07/21/21 15:52 Temperature 36.5 C 07/21/21 15:52 Temperature Source Temporal Artery Scan 07/21/21 15:52 Pulse 86 07/21/21 15:52 Respiratory Rate 18 07/21/21 15:52 Blood Pressure Position Sitting 07/21/21 15:52 Pulse Oximetry 96 07/21/21 15:52 Oxygen Delivery Method Room Air 07/21/21 15:52 Oxygen Flow Rate 0 07/21/21 15:52 Pain Level 3 07/21/21 15:52 Comment 07/21/21 15:52 Lab/Test Results Lab/Test Results: 07/21/21 15:58 Blood Blood Culture - Pending 07/21/21 15:58 Blood Blood Culture - Pending
[2021-07-21 16:21] LABS: Abs Immature Grans 0.05 10^3/uL (0.0-0.06); Absolute Basophil Count 0.07 10^3/uL (0.0-0.2); Absolute Eosinophil Count 0.18 10^3/uL (0.0-0.7); Absolute Lymphocyte Count 2.37 10^3/uL (1.2-3.4); Absolute Monocyte Count 1.24 10^3/uL (0.1-0.8); Basophils % 0.6; Eosinophils % 1.6; HCT 45.2 % (36.0-46.0); HGB 15.7 g/dL (11.2-15.7); Immature Grans % 0.4; Lymphocytes % 20.8; MCH 32.4 pg (27.0-33.0); MCHC 34.7 % (32.0-36.0); MCV 93.2 fL (80-95); MPV 9.9 fL (8.0-11.0); Monocytes % 10.9; Neutrophils % 65.7; Nucleated RBC 0 %; Platelet Count 235 10^3/uL (130-400); RBC 4.85 10^6/uL (3.93-5.22); RDW 12.1 % (11.7-14.6); RDW-SD 42.3 fL; WBC 11.41 10^3/uL (4.4-10.8)
[2021-07-21 16:24] LABS: Lactate 1.6 mmol/L (0.6-1.4)
[2021-07-21 16:40] LABS: ALT 20 U/L (14-59); AST 16 U/L (15-37); Albumin 3.6 g/dL (3.4-5.0); Alkaline Phosphatase 74 U/L (46-116); Anion Gap 8.4 mmol/L (3-11); BUN 13 mg/dL (7-18); Bilirubin, Total 0.6 mg/dL (0.2-1.0); CO2 27.6 mmol/L (21.0-32.0); CREATININE 0.7 mg/dL (0.55-1.02); Calcium 9.1 mg/dL (8.5-10.1); Chloride 102 mmol/L (98-107); Glucose 166 mg/dL (74-106); Magnesium 1.9 mg/dL (1.8-2.4); Sodium 138 mmol/L (136-145); Total Protein 7.4 g/dL (6.4-8.2)
[2021-07-21 16:41] LABS: Source Nasal/Nares
[2021-07-21 16:57] LABS: Bilirubin Negative (Negative); Blood Small (Negative); Clarity Clear (Clear); Glucose >=1000 mg/dL (Negative); Ketones Negative (Negative); Leukocyte Esterase Negative (Negative); Nitrite Negative (Negative); Urobilinogen 0.2 EU/dL (Up TO 0.2); pH 5.5 (5-8)
[2021-07-21 17:07] LABS: Epithelial Cells Few HPF (Negative); Other Cells Few Transitional (Negative); WBC 20-50 HPF (0-5)
[2021-07-21 17:08] LABS: Bacteria Many HPF (Negative); C & S Indicated? C&S Done As Ordered; Crystals Negative HPF (Negative); Mucus Negative (Negative)
--- NOTE | 2021-07-21 17:44 | DI.VRAD_ITS ---
PROCEDURE INFORMATION: Exam: CT Abdomen And Pelvis Without Contrast Exam date and time: 07/21/2021 4:11 PM Age: 65 years old Clinical indication: Abdominal pain; Patient HX: Bilateral flank pain TECHNIQUE: Imaging protocol: Computed tomography of the abdomen and pelvis without contrast. COMPARISON: CT ABDOMEN PELVIS W 02/28/2019 11:32 AM FINDINGS: Lungs: The visualized lung bases are within normal limits. Heart: The visualized portions of the heart and pericardium are unremarkable. Liver: The liver contour is somewhat nodular consistent with cirrhosis. Clinical correlation is recommended. The small liver is enlarged. Gallbladder and bile ducts: The patient is status post cholecystectomy. Pancreas: The pancreas is unremarkable. Spleen: The spleen is within normal limits. Adrenal glands: The adrenal glands are within normal limits. Kidneys and ureters: The kidneys are unremarkable. Stomach and bowel: There are diverticulum of the colon. Appendix: No evidence of appendicitis. Intraperitoneal space: Unremarkable. No free air. No significant fluid collection. Vasculature: There are arteriosclerotic changes of the aorta. There are phleboliths within the pelvis. Lymph nodes: No enlarged lymph nodes. Urinary bladder: The urinary bladder is not very distended with urine. Reproductive: The uterus and ovaries are within normal limits. Bones/joints: There are degenerative changes of the thoracic and lumbar spines. There is degenerative disc disease at multiple levels. There are degenerative changes both hips. Soft tissues: There is a fat containing umbilical hernia. IMPRESSION: Suspect cirrhosis. Clinical correlation is recommended. Hepatomegaly. Arteriosclerotic changes of the aorta. Osseous findings as above. Status post cholecystectomy. Umbilical hernia. Dictated and Authenticated by: Nicolas Chen MD. Ordering:NARCISO Mccain MD
[2021-07-21 17:47] LABS: COVID-19 PCR Negative (Negative)
--- NOTE | 2021-07-24 14:14 | NUR.NOTE ---
informed that covid test was negative by phone.Nursing Note:
== END 2021-07-21 18:11 | disposition home or self-care (01) ==
PROVIDERS: Emergency Provider Emergency Medicine; PCP Nurse Practitioner Family
DX: N10 Acute pyelonephritis (principal); B96.20 Unspecified Escherichia coli [E. coli] as the cause of diseases classified elsewhere; M54.50 Low back pain, unspecified; Z20.822 Contact with and (suspected) exposure to COVID-19; Z03.818 Encounter for observation for suspected exposure to other biological agents ruled out
CPT/HCPCS: 36415; 80053; 87040; 87077; 87635; 99284; 74176; 81003; 81015; 83605; 83735; 85025; 87086; 87186; 99285

== ENCOUNTER 2021-07-28 17:54 | Outpatient (REF) | payer MEDICARE, BC, SELFPAY ==
[2021-07-28 22:06] LABS: HCT 45.1 % (36.0-46.0); HGB 15.5 g/dL (11.2-15.7); MCH 31.6 pg (27.0-33.0); MCHC 34.4 % (32.0-36.0); MPV 10.2 fL (8.0-11.0); Platelet Count 301 10^3/uL (130-400); RDW 11.9 % (11.7-14.6); RDW-SD 39.9 fL; WBC 9.33 10^3/uL (4.4-10.8)
[2021-07-28 22:43] LABS: ALT 31 U/L (14-59); AST 14 U/L (15-37); Albumin 3.7 g/dL (3.4-5.0); Alkaline Phosphatase 71 U/L (46-116); Bilirubin, Total 0.5 mg/dL (0.2-1.0); Ferritin 149 ng/mL (8-252)
[2021-07-28 22:52] LABS: Bilirubin, Direct 0.1 mg/dL (0.0-0.2)
[2021-07-28 23:01] LABS: Iron 79 ug/dL (50-170); Total Iron Binding Capacity 283 ug/dL (250-450); Transferrin Sat 28 % (15-50)
[2021-07-30 11:34] LABS: Hepatitis B Surface Ab Negative (See Note)
[2021-07-30 11:46] LABS: Hepatitis B Surface Ag Negative (Negative)
[2021-07-30 14:13] LABS: Hepatitis C Ab w Rflx HCV PCR Negative (Negative)
[2021-07-30 15:00] LABS: Lyme Ab w Rflx to Lyme Confirm Negative (Negative)
== END 2021-07-28 17:55 | disposition home or self-care (01) ==
LOC: NCHCN 17:54
PROVIDERS: PCP Nurse Practitioner Family; Visit Provider Nurse Practitioner Family
DX: R53.83 Other fatigue (principal); M25.59 Pain in other specified joint; R91.8 Other nonspecific abnormal finding of lung field
CPT/HCPCS: 80076; 85027; 86706; 86803; 87340; 82728; 83540; 83550; 86618

== ENCOUNTER 2021-10-07 10:08 | Outpatient (REF) | payer MEDICARE, BC, SELFPAY ==
[2021-10-07 13:33] LABS: HDL Cholesterol 36 mg/dL (40-60); LDL CHOLESTEROL 69 mg/dL (<100)
[2021-10-07 14:04] LABS: Creatine Kinase 60 U/L (26-192)
== END 2021-10-07 10:09 | disposition home or self-care (01) ==
LOC: NCHCN 10:08
PROVIDERS: PCP Nurse Practitioner Family; Visit Provider Nurse Practitioner Family
DX: E78.5 Hyperlipidemia, unspecified (principal)
CPT/HCPCS: 82550; 83721; 83718

== ENCOUNTER 2022-03-31 11:20 | Outpatient (REF) | payer MEDICARE, BC, SELFPAY ==
[2022-04-04 13:11] LABS: Methylphenidate Negative ng/mL (Cutoff: 10); Ritalinic Acid 61 ng/mL (Cutoff: 50)
== END 2022-03-31 11:21 | disposition home or self-care (01) ==
LOC: NCHCN 11:20
PROVIDERS: PCP Nurse Practitioner Family; Visit Provider Nurse Practitioner Family
DX: F90.0 Attention-deficit hyperactivity disorder, predominantly inattentive type (principal); Z51.81 Encounter for therapeutic drug level monitoring; Z79.899 Other long term (current) drug therapy
CPT/HCPCS: 80360

== ENCOUNTER 2022-04-13 17:54 | Outpatient (REF) | payer MEDICARE, BC, SELFPAY ==
[2022-04-13 15:48] LABS: Hemoglobin A1C 6.7 % (<5.7)
[2022-04-13 15:56] LABS: Cholesterol 205 mg/dL (<200); HDL Cholesterol 33 mg/dL (40-60); Triglyceride 492 mg/dL (<150)
[2022-04-13 16:08] LABS: LDL CHOLESTEROL 86 mg/dL (<100)
[2022-04-13 16:20] LABS: Vitamin D 25 Total 11.7 ng/mL (30-100)
[2022-04-16 12:34] LABS: Methylphenidate 512 ng/mL (Cutoff: 10); Ritalinic Acid 5613 ng/mL (Cutoff: 50)
== END 2022-04-13 17:55 | disposition home or self-care (01) ==
LOC: NCHCN 17:54
PROVIDERS: PCP Nurse Practitioner Family; Visit Provider Nurse Practitioner Family
DX: E11.9 Type 2 diabetes mellitus without complications (principal); R53.83 Other fatigue; E78.5 Hyperlipidemia, unspecified; F90.0 Attention-deficit hyperactivity disorder, predominantly inattentive type; Z51.81 Encounter for therapeutic drug level monitoring; E55.9 Vitamin D deficiency, unspecified
CPT/HCPCS: 80061; 80360; 82306; 83721; 83036

== ENCOUNTER 2022-04-20 17:35 | Outpatient (REF) | payer MEDICARE, BC, SELFPAY ==
[2022-04-20 16:40] LABS: Anion Gap 12.5 mmol/L (3-11); BUN 21 mg/dL (7-18); CO2 22.5 mmol/L (21.0-32.0); CREATININE 0.8 mg/dL (0.55-1.02); Calcium 9.3 mg/dL (8.5-10.1); Chloride 103 mmol/L (98-107); Glucose 183 mg/dL (74-106); Potassium 4.1 mmol/L (3.5-5.1); Sodium 138 mmol/L (136-145)
[2022-04-20 16:49] LABS: Abs Immature Grans 0.04 10^3/uL (0.0-0.06); Absolute Basophil Count 0.06 10^3/uL (0.0-0.2); Absolute Eosinophil Count 0.23 10^3/uL (0.0-0.7); Absolute Lymphocyte Count 2.26 10^3/uL (1.2-3.4); Absolute Monocyte Count 0.62 10^3/uL (0.1-0.8); Absolute Neutrophil Count 3.22 10^3/uL (1.2-6.7); Basophils % 0.9; Eosinophils % 3.6; HCT 47.7 % (36.0-46.0); HGB 16.5 g/dL (11.2-15.7); Immature Grans % 0.6; Lymphocytes % 35.1; MCH 32.7 pg (27.0-33.0); MCHC 34.6 % (32.0-36.0); MCV 95 fL (80-95); MPV 10.4 fL (8.0-11.0); Monocytes % 9.6; Neutrophils % 50.2; Platelet Count 274 10^3/uL (130-400); RBC 5.04 10^6/uL (3.93-5.22); RDW 12.4 % (11.7-14.6); RDW-SD 43.2 fL; WBC 6.43 10^3/uL (4.4-10.8)
[2022-04-20 16:50] LABS: Bilirubin Negative (Negative); Blood Negative (Negative); Clarity Clear (Clear); Glucose >=1000 mg/dL (Negative); Ketones Negative (Negative); Leukocyte Esterase Negative (Negative); Nitrite Negative (Negative); Specific Gravity 1.015 (1.005-1.025); Urobilinogen 0.2 EU/dL (Up TO 0.2)
== END 2022-04-20 17:36 | disposition home or self-care (01) ==
LOC: NCHCN 17:35
PROVIDERS: PCP Nurse Practitioner Family; Visit Provider Nurse Practitioner Family
DX: R30.9 Painful micturition, unspecified (principal)
CPT/HCPCS: 80048; 81003; 85025

== ENCOUNTER → 2022-04-24 01:33 | Outpatient (CLI) | payer MEDICARE, BC, SELFPAY ==
--- NOTE | 2022-04-24 10:24 | DI.CTLCSR_ITS ---
Exam(s) CT CHEST LUNG CANCER SCREEN EXAM: CT CHEST LUNG CANCER SCREEN CLINICAL HISTORY: SCREENING FOR LUNG CA, FORMER SMOKER, Z87.891 TECHNIQUE: Imaging Protocol: Axial computed tomography images with coronal and sagittal reformatted images were created and reviewed. Low dose screening protocol. COMPARISON: CT ABD PELVIS WITH CONTRAST from 08/11/2011 CT CHEST - LUNG CANCER SCREENING from 01/24/2018 CR XR CHEST 2V PA LATERAL from 08/06/2020 MR MR LUMBAR SPINE WO from 08/28/[address] CHEST LUNG CANCER SCREEN from 03/26/[address] RENAL COLIC WO from 07/21/2021 FINDINGS: Tracheobronchial tree: No bronchiectasis or mucus plugging.. Mediastinum and Fabiola: No dominant adenopathy or fluid collection. Pulmonary parenchyma: No consolidation or dominant measurable mass. Mild emphysematous changes. Lung Nodules: Stable tiny pleural-based nodule lateral right middle lobe, 4 millimeters. Stable mild area of scarring near fissure. Pleura: No effusion. No pneumothorax. Heart: The heart is not dilated. [id number] coronary artery calcifications are seen. Aorta: Mild dilatation of ascending aorta 4.1 cm. Minimal atherosclerotic changes. Upper abdomen: Enlarged fatty liver. Bones: Severe degenerative disc changes with prominent endplate osteophytes. Bones appear osteoporot ic. No compression fractures.. Soft Tissues: Unremarkable. IMPRESSION: No suspicious pulmonary nodules. Lung RADS Cat 2 - Benign Appearance / Behavior: Nodules with a very low likelihood of becoming a clin ically active cancer due to size or lack of growth Lung-RADS 1.0 CATEGORIES: Category 0 - Prior chest CT exam(s) being located for comparison. Category 1 - Annual screening in 12 months. No nodules or definitely benign nodules. Category 2 - Annual screening in 12 months. Benign appearance. Nodules with low likelihood of becomin g active cancer. Category 3 - 6-month follow-up. Probably benign. Short-term follow-up suggested. Nodules with low lik elihood of becoming active cancer. Category 4A - 3-month follow-up and CT/PET if >8 mm in size. Suspicious finding. Findings which requi re additional testing. Category 4B - Findings which require additional testing and tissue sampling. Category 4X - Category 3 or 4 nodules with additional features or imaging findings that increases the suspicion of malignancy. Modifier S- Potentially clinically significant findings (non lung cancer) RADIATION DOSE DELIVERED: 88.29mGy.cm Total DLP 2.21mGy CTDIvol DATA REPOSITORY: All CT scans at this facility are submitted to the National Radiology Data Registry (NRDR) Dose Index Registry (DIR) with the [employer] (ACR). RADIATION OPTIMIZATION: All CT scans at this facility use at least one of these dose optimization te chniques: automated exposure control; mA and/or kV adjustment per patient size (includes targeted exa ms where dose is matched to clinical indication); or iterative reconstruction.
== END ==
PROVIDERS: PCP Nurse Practitioner Family; Visit Provider Nurse Practitioner Family
DX: Z87.891 Personal history of nicotine dependence (principal); Z12.2 Encounter for screening for malignant neoplasm of respiratory organs
CPT/HCPCS: 71271

== ENCOUNTER → 2022-05-27 01:52 | Outpatient (CLI) | payer MEDICARE, BC, SELFPAY ==
--- NOTE | 2022-05-27 | DI.US_ITS ---
Exam(s) US PELVIS TRANSVAGINAL EXAM: US PELVIS TRANSVAGINAL CLINICAL HISTORY: PELVIC PAIN R10.2 TECHNIQUE: Ultrasound of the pelvis was performed both transabdominal and transvaginal. COMPARISON: US US RENAL from 05/27/2022 FINDINGS: UTERUS: Nongravid and anteverted, measuring Measures 6 cm length x 5 cm AP x 5 cm wide. There is a fundal fibroid measuring approximately 3.3 x 3.1 x 3.2 cm. Endometrial thickness is difficult to adequately visualize for accurate measurement. There is no obvious fluid in the endometrial canal. CERVIX: There are no obvious nabothian cysts. RIGHT OVARY: Measures 2.4 x 1.4 x 2.7 cm No significant cysts nor masses evident in the right ovary. LEFT OVARY: Not seen CUL-DE-SAC: No free fluid evident. IMPRESSION: 1. There is a fundal fibroid with measurements as above. 2. It was apparently not possible to adequately visualized the endometrium for measurement 3. Right ovary appears unremarkable. Left ovary was not seen. No free fluid evident. DATA REPOSITORY:
--- NOTE | 2022-05-27 | DI.US_ITS ---
Exam(s) US RENAL EXAM: US RENAL CLINICAL HISTORY: ? URINARY RETENTION,PELVIC PAIN TECHNIQUE: Ultrasound of both kidneys performed using standard protocol. COMPARISON: US PELVIS TRANSVAG from 08/11/2011 FINDINGS: RIGHT KIDNEY: Measures 10.4 cm in length. No cysts evident. Normal cortical thickness and corticomedullary differen tiation .No solid masses No intrarenal calculi nor hydronephrosis. LEFT KIDNEY: Measures 0.2 cm in length. No cysts evident. Normal cortical thickness and corticomedullary differen tiaion. No solids masses. No intrarenal calculi nor hydonephrosis. URINARY BLADDER: Prevoid volume is 610 cc Postvoid volume is 18.6 cc Bladder wall thickness is 3 millimeters. No evidence of bladder mass nor diverticuli. Ureterovesical jets: Both identified and appear symmetrical IMPRESSION: 1. No significant ultrasound findings in the kidneys. 2. No focal findings in the urinary bladder. DATA REPOSITORY:
== END ==
PROVIDERS: PCP Nurse Practitioner Family; Visit Provider Nurse Practitioner Family
DX: D25.9 Leiomyoma of uterus, unspecified (principal); R33.9 Retention of urine, unspecified; R10.2 Pelvic and perineal pain
CPT/HCPCS: 76770; 76830; 76856

== ENCOUNTER → 2022-07-01 02:20 | Outpatient (CLI) | payer MEDICARE, BC, SELFPAY ==
--- NOTE | 2022-07-01 | DI.MAMMO_ITS ---
Exam(s) MAMMO SCREENING EXAM: MAMMO SCREENING CLINICAL HISTORY: SCREENING MAMMO FOR BREAST CANCER Z12.31 TECHNIQUE: Mammograms were interpreted according to the usual protocol including computer analysis w the [facility] CAD system, tomosynthesis and C-view imaging. COMPARISON: FINDINGS: The breasts are of moderate density with fairly symmetrical distribution of fibroglandular tissue. N o dominant mass or clumped microcalcification is identified in either breast. The current examinatio n is compared with previous examinations including March 2018 and there has been no gross interval christian nge in appearance in comparison with the prior studies. IMPRESSION: No specific evidence of malignancy at this time. Routine screening examinations are suggested at yea rly intervals due to the family history of breast carcinoma. BI-RADS Category 1 - Negative Breast Density - Category B - Scattered areas of fibroglandular density
== END ==
PROVIDERS: PCP Nurse Practitioner Family; Visit Provider Nurse Practitioner Family
DX: Z12.31 Encounter for screening mammogram for malignant neoplasm of breast (principal)
CPT/HCPCS: 77063; 77067

== ENCOUNTER 2022-11-19 15:53 | Outpatient (REF) | payer MEDICARE, BC, SELFPAY ==
[2022-11-19 15:39] LABS: HCT 45.5 % (36.0-46.0); HGB 16.4 g/dL (11.2-15.7); MCV 92 fL (80-95); MPV 10.2 fL (8.0-11.0); Platelet Count 255 10^3/uL (130-400); RBC 4.97 10^6/uL (3.93-5.22); RDW 12.2 % (11.7-14.6); RDW-SD 40.8 fL
[2022-11-19 16:17] LABS: Anion Gap 11.6 mmol/L (3-11); BUN 17 mg/dL (7-18); CO2 23.4 mmol/L (21.0-32.0); CREATININE 0.7 mg/dL (0.55-1.02); Calcium 9.3 mg/dL (8.5-10.1); Chloride 103 mmol/L (98-107); Estimated GFR 94.15 (mL/min/1.73m2); Glucose 140 mg/dL (74-106); Potassium 4.6 mmol/L (3.5-5.1); Sodium 138 mmol/L (136-145)
== END 2022-11-19 15:54 | disposition home or self-care (01) ==
LOC: NCHCN 15:53
PROVIDERS: PCP Nurse Practitioner Family; Visit Provider Nurse Practitioner Family
DX: Z01.818 Encounter for other preprocedural examination (principal)
CPT/HCPCS: 80048; 85027

== ENCOUNTER 2023-01-11 14:50 | Outpatient (REF) | payer MEDICARE, BC, SELFPAY ==
[2023-01-11 18:54] LABS: Uric Acid 3.7 mg/dL (2.6-6.0)
== END 2023-01-11 14:51 | disposition home or self-care (01) ==
LOC: NCHCN 14:50
PROVIDERS: PCP Nurse Practitioner Family; Visit Provider Nurse Practitioner Family
DX: N76.0 Acute vaginitis (principal); M79.672 Pain in left foot; L72.9 Follicular cyst of the skin and subcutaneous tissue, unspecified; F90.0 Attention-deficit hyperactivity disorder, predominantly inattentive type
CPT/HCPCS: 84550; 87480; 87510; 87660

== ENCOUNTER 2023-02-08 10:12 | Outpatient (REF) | payer MEDICARE, BC, SELFPAY | END 2023-02-08 10:13 | disposition home or self-care (01) | LOC: NCHCN 10:12 | PROVIDERS: PCP Nurse Practitioner Family; Visit Provider Nurse Practitioner Family | DX: N76.0 Acute vaginitis (principal) | CPT/HCPCS: 87480; 87510; 87660 ==

== ENCOUNTER → 2023-08-25 02:37 | Outpatient (CLI) | payer MEDICARE, BC, SELFPAY ==
--- NOTE | 2023-08-25 | DI.CTLCSR_ITS ---
Exam(s) CT CHEST LUNG CANCER SCREEN EXAM: CT CHEST LUNG CANCER SCREEN CLINICAL HISTORY: SCREENING FOR LUNG CA,FORMER SMOKER, Z87.891 TECHNIQUE: Imaging Protocol: Axial computed tomography images with coronal and sagittal reformatted images were created and reviewed. Low dose screening protocol. COMPARISON: CT CT CHEST LUNG CANCER SCREEN from 04/24/2022 FINDINGS: Tracheobronchial tree: No bronchiectasis or mucus plugging.. Mediastinum and Fabiola: No dominant adenopathy or fluid collection. Pulmonary parenchyma: No consolidation or dominant measurable mass. Mild emphysematous changes. Lung Nodules: Stable 4 millimeter nodule lateral right middle lobe. Stable small perifissural nodule . Pleura: No effusion. No pneumothorax. Heart: The heart is not dilated. [id number] coronary artery calcifications are seen. Aorta: Ascending aorta measures 4.1 cm, stable. Upper abdomen: Unremarkable. Bones: Prominent flowing osteophytes in the thoracic spine. Soft Tissues: Unremarkable. IMPRESSION: No suspicious pulmonary nodules. Lung RADS Cat 2 - Benign Appearance / Behavior: Nodules with a very low likelihood of becoming a clin ically active cancer due to size or lack of growth Lung-RADS 1.0 CATEGORIES: Category 0 - Prior chest CT exam(s) being located for comparison. Category 1 - Annual screening in 12 months. No nodules or definitely benign nodules. Category 2 - Annual screening in 12 months. Benign appearance. Nodules with low likelihood of becomin g active cancer. Category 3 - 6-month follow-up. Probably benign. Short-term follow-up suggested. Nodules with low lik elihood of becoming active cancer. Category 4A - 3-month follow-up and CT/PET if >8 mm in size. Suspicious finding. Findings which requi re additional testing. Category 4B - Findings which require additional testing and tissue sampling. Category 4X - Category 3 or 4 nodules with additional features or imaging findings that increases the suspicion of malignancy. Modifier S- Potentially clinically significant findings (non lung cancer) RADIATION DOSE DELIVERED: Total DLP DATA REPOSITORY: All CT scans at this facility are submitted to the National Radiology Data Registry (NRDR) Dose Index Registry (DIR) with the [employer] (ACR). RADIATION OPTIMIZATION: All CT scans at this facility use at least one of these dose optimization te chniques: automated exposure control; mA and/or kV adjustment per patient size (includes targeted exa ms where dose is matched to clinical indication); or iterative reconstruction.
== END ==
PROVIDERS: PCP Nurse Practitioner Family; Visit Provider Nurse Practitioner Family
DX: Z87.891 Personal history of nicotine dependence (principal); Z12.2 Encounter for screening for malignant neoplasm of respiratory organs
CPT/HCPCS: 71271

== ENCOUNTER 2023-10-13 12:58 | Outpatient (REF) | payer MEDICARE, BC, SELFPAY ==
[2023-10-13 15:39] LABS: HCT 43.9 % (36.0-46.0); HGB 15.6 g/dL (11.2-15.7); MCHC 35.5 % (32.0-36.0); MCV 90 fL (80-95); MPV 9.7 fL (8.0-11.0); Platelet Count 279 10^3/uL (130-400); RBC 4.87 10^6/uL (3.93-5.22); RDW 11.9 % (11.7-14.6); RDW-SD 39.2 fL; WBC 6.45 10^3/uL (4.4-10.8)
[2023-10-13 16:02] LABS: ALT 28 U/L (14-59); AST 17 U/L (15-37); Albumin 3.7 g/dL (3.4-5.0); Alkaline Phosphatase 80 U/L (46-116); BUN 26 mg/dL (7-18); Bilirubin, Total 0.5 mg/dL (0.2-1.0); CREATININE 0.7 mg/dL (0.55-1.02); Calcium 9.8 mg/dL (8.5-10.1); Chloride 102 mmol/L (98-107); Estimated GFR 94.15 (mL/min/1.73m2); Glucose 146 mg/dL (74-106); HDL Cholesterol 51 mg/dL (40-60); LDL CHOLESTEROL 84 mg/dL (<100); Potassium 4.4 mmol/L (3.5-5.1); Sodium 136 mmol/L (136-145); Total Protein 7.5 g/dL (6.4-8.2)
[2023-10-13 16:06] LABS: Hemoglobin A1C 5.7 % (<5.7)
== END 2023-10-13 12:59 | disposition home or self-care (01) ==
LOC: NCHCN 12:58
PROVIDERS: PCP Nurse Practitioner Family; Visit Provider Nurse Practitioner Family
DX: E11.9 Type 2 diabetes mellitus without complications (principal); I10 Essential (primary) hypertension; L98.7 Excessive and redundant skin and subcutaneous tissue; E78.5 Hyperlipidemia, unspecified
CPT/HCPCS: 80053; 83721; 85027; 83036; 83718

== ENCOUNTER 2023-12-28 16:43 | Outpatient (REF) | payer MEDICARE, BC, SELFPAY ==
--- NOTE | 2023-12-28 10:00 | SKI_PTH ---
PATIENT: Sirisha Guo LOC: [facility] U#:[id number] AGE/SX: 68/F ROOM: RE12/28/[address]: Ramon Yung MD : [id number] BED: DIS: 12/28/2023 SPEC #: [id number] RECD: 12/28/23 17:26 STATUS: ETHAN RECassandra #: [id number] LINDSAY: 12/28/23 10:[address]: Ramon Yung DEPT: Surgical Specimen RECD BY: Siobhan Elliott ENTERED: 12/28/23 17:27 SP TYPE: RAMÓN HERNANDEZ DR: Bella Coronado Tissues: 1 - SKIN BIOPSY(SHAVE/PUNCH) 2 - SKIN BIOPSY(SHAVE/PUNCH) Procedures: GROSS AND MICRO LEVEL 4 Comments: [id number]
== END 2023-12-28 16:44 | disposition home or self-care (01) ==
LOC: LBN 16:43
PROVIDERS: PCP Nurse Practitioner Family; Visit Provider Otolaryngology
DX: D10.39 Benign neoplasm of other parts of mouth (principal); K13.79 Other lesions of oral mucosa
CPT/HCPCS: 88305

== ENCOUNTER 2024-02-22 11:28 | Outpatient (REF) | payer MEDICARE, BC, SELFPAY ==
[2024-02-22 15:46] LABS: Hemoglobin A1C 6.8 % (<5.7)
[2024-02-22 16:10] LABS: Vitamin D 25 Total 11.7 ng/mL (30-100)
[2024-02-22 16:12] LABS: Vitamin B12 392 pg/mL (193-986)
== END 2024-02-22 11:29 | disposition home or self-care (01) ==
LOC: NCHCN 11:28
PROVIDERS: PCP Nurse Practitioner Family; Visit Provider Nurse Practitioner Family
DX: E11.9 Type 2 diabetes mellitus without complications (principal); R41.3 Other amnesia; R39.9 Unspecified symptoms and signs involving the genitourinary system
CPT/HCPCS: 82306; 82607; 83036; 84443; 87480; 87510; 87660

== ENCOUNTER → 2024-03-03 00:21 | Outpatient (CLI) | payer MEDICARE, BC, SELFPAY ==
--- NOTE | 2024-03-03 | DI.US_ITS ---
Exam(s) US RENAL EXAM: US RENAL CLINICAL HISTORY: Incomplete bladder emptying, R39.14; please do PVR. TECHNIQUE: Gomez scale, color and spectral Doppler were used. COMPARISON: CT CT ABDOMEN PELVIS W from 02/28/[address] RENAL COLIC WO from 07/21/[address] CHEST LUNG CANCER SCREEN from 04/24/2022 US US PELVIS TRANSVAGINAL from 05/27/2022 US US RENAL from 05/27/2022 FINDINGS: Exam is limited by patient body habitus. Right kidney: 10.5 cm Echogenicity: Normal Hydronephrosis: No Cyst or mass: No Nephrolithiasis: No Left kidney: 11.6cm, column of Gonzales noted. Echogenicity: Normal Hydronephrosis: No Cyst or mass: No Nephrolithiasis: No Bladder:Suboptimally distended. Right ureteral jet was visualized. Left was not visualized. Prevoid vol:69 cc Postvoid vol:6 cc Hepatic steatosis noted. IMPRESSION: Unremarkable renal ultrasound. DATA REPOSITORY:
== END ==
PROVIDERS: PCP Nurse Practitioner Family; Visit Provider Nurse Practitioner Family
DX: R39.14 Feeling of incomplete bladder emptying (principal)
CPT/HCPCS: 76770

== ENCOUNTER 2024-05-23 16:21 | Outpatient (REF) | payer MEDICARE, BC, SELFPAY ==
[2024-05-26 09:39] LABS: Amphetamine Negative ng/mL (Cutoff: 25); Amphetamines Interpretation Negative.; MDA (Ecstasy Metabolite) Negative ng/mL (Cutoff: 25); MDMA (Ecstasy) Negative ng/mL (Cutoff: 25); Methamphetamine Negative ng/mL (Cutoff: 25); Phentermine Negative ng/mL (Cutoff: 25); Pseudoephedrine/Ephedrine Negative ng/mL (Cutoff: 25)
== END 2024-05-23 16:22 | disposition home or self-care (01) ==
LOC: NCHCN 16:21
PROVIDERS: PCP Physician Assistant Medical; Visit Provider Nurse Practitioner Psychiatric/Mental Health
DX: F90.9 Attention-deficit hyperactivity disorder, unspecified type (principal)
CPT/HCPCS: 80324

== ENCOUNTER 2024-06-07 13:21 | Outpatient (REF) | payer MEDICARE, BC, SELFPAY ==
[2024-06-07 15:32] LABS: Hemoglobin A1C 6.6 % (<5.7)
[2024-06-07 15:56] LABS: Vitamin D 25 Total 16.7 ng/mL (30-100)
== END 2024-06-07 13:22 | disposition home or self-care (01) ==
LOC: NCHCN 13:21
PROVIDERS: PCP Physician Assistant Medical; Visit Provider Physician Assistant Medical
DX: E11.9 Type 2 diabetes mellitus without complications (principal); E55.9 Vitamin D deficiency, unspecified
CPT/HCPCS: 82306; 83036

== ENCOUNTER 2024-10-17 16:29 | Outpatient (REF) | payer MEDICARE, BC, SELFPAY ==
[2024-10-17 17:26] LABS: Hemoglobin A1C 7.2 % (<5.7)
[2024-10-17 18:04] LABS: ALT 35 U/L (14-59); AST 25 U/L (15-37); Albumin 3.6 g/dL (3.4-5.0); Alkaline Phosphatase 72 U/L (46-116); Anion Gap 10.2 mmol/L (3-11); BUN 19 mg/dL (7-18); Bilirubin, Total 0.47 mg/dL (0.2-1.0); CO2 25.8 mmol/L (21.0-32.0); CREATININE 0.9 mg/dL (0.55-1.02); Calcium 9.9 mg/dL (8.5-10.1); Calculated LDL 48 mg/dL (<100); Chloride 102 mmol/L (98-107); Cholesterol 167 mg/dL (<200); Glucose 229 mg/dL (74-106); HDL Cholesterol 43 mg/dL (40-60); Potassium 3.9 mmol/L (3.5-5.1); Sodium 138 mmol/L (136-145); Total Protein 7.2 g/dL (6.4-8.2); Triglyceride 382 mg/dL (<150); Vitamin D 25 Total 16.7 ng/mL (30-100)
== END 2024-10-17 16:30 | disposition home or self-care (01) ==
LOC: NCHCN 16:29
PROVIDERS: PCP Physician Assistant Medical; Visit Provider Physician Assistant Medical
DX: E11.9 Type 2 diabetes mellitus without complications (principal); E55.9 Vitamin D deficiency, unspecified
CPT/HCPCS: 80053; 80061; 82306; 83036

== ENCOUNTER 2024-10-24 01:46 | Outpatient (CLI) | payer MEDICARE, BC, SELFPAY ==
--- NOTE | 2024-10-24 | DI.CTLCSR_ITS ---
Exam(s) CT CHEST LUNG CANCER SCREEN EXAM: CT CHEST LUNG CANCER SCREEN CLINICAL HISTORY: Screening, nicotine dependence, tobacco dependence caused by cigarettes,. TECHNIQUE: Imaging Protocol: Low Dose Technique CONTRAST MATERIAL: None COMPARISON: CT CT CHEST LUNG CANCER SCREEN from 08/25/2023 FINDINGS: CHEST: LUNGS: There are no new ominous pulmonary nodules. A stable subpleural 3 mm nodule the lateral aspect of the right middle lobe. There are benign-appearing increased markings in the inferior lingular se gment of the left lung, not previously present. No other significant left lung findings. There are no pleural effusions. No bronchiectasis. MEDIASTINUM: There is no obvious hilar nor mediastinal adenopathy. CARDIAC: Heart size is normal. There is no pericardial effusion.Caliber of the thoracic aorta is wit hin normal limits. OTHER: OSSEOUS: No significant osseous lesions.No fractures.. IMPRESSION: 1. No new suspicious lung nodules. 2. Mild increased markings lingular segment of the left lung with benign appearance. No pleural effu sions. 3. Lung RADS Cat 2 - Benign Appearance / Behavior: Nodules with a very low likelihood of becoming a c linically active cancer due to size or lack of growth Lung-RADS 1.0 CATEGORIES: Category 0 - Prior chest CT exam(s) being located for comparison. Category 1 - Annual screening in 12 months. No nodules or definitely benign nodules. Category 2 - Annual screening in 12 months. Benign appearance. Nodules with low likelihood of becomin g active cancer. Category 3 - 6-month follow-up. Probably benign. Short-term follow-up suggested. Nodules with low lik elihood of becoming active cancer. Category 4A - 3-month follow-up and CT/PET if >8 mm in size. Suspicious finding. Findings which requi re additional testing. Category 4B - Findings which require additional testing and tissue sampling. Category 4X - Category 3 or 4 nodules with additional features or imaging findings that increases the suspicion of malignancy. Modifier S- Potentially clinically significant findings (non lung cancer) RADIATION DOSE DELIVERED: 97.25mGy.cm Total DLP DATA REPOSITORY: All CT scans at this facility are submitted to the National Radiology Data Registry (NRDR) Dose Index Registry (DIR) with the [employer] ([employer]). RADIATION OPTIMIZATION: All CT scans at this facility use at least one of these dose optimization te chniques: automated exposure control; mA and/or kV adjustment per patient size (includes targeted exa ms where dose is matched to clinical indication); or iterative reconstruction.
== END 2024-10-24 02:06 ==
LOC: DI 01:46
PROVIDERS: PCP Physician Assistant Medical; Visit Provider Physician Assistant Medical
DX: F17.210 Nicotine dependence, cigarettes, uncomplicated (principal); Z12.2 Encounter for screening for malignant neoplasm of respiratory organs
CPT/HCPCS: 71271

== ENCOUNTER 2024-10-24 18:25 | Outpatient (REF) | payer MEDICARE, BC, SELFPAY ==
[2024-10-24 19:14] LABS: Bilirubin Negative (Negative); Blood Trace-intact (Negative); Clarity Clear (Clear); Glucose Negative (Negative); Ketones Negative (Negative); Leukocyte Esterase Negative (Negative); Nitrite Negative (Negative); Specific Gravity 1.015 (1.005-1.025); Urobilinogen 0.2 mg/dL (Up to 0.2); pH 6.5 (5-8)
[2024-10-24 19:20] LABS: Bacteria Negative HPF (Negative); C & S Indicated? No; Crystals Negative HPF (Negative); Epithelial Cells Rare HPF (Negative); Mucus Negative (Negative); RBC 0-2 HPF (0-2); WBC Negative HPF (0-5)
== END 2024-10-24 18:26 | disposition home or self-care (01) ==
LOC: NCHCN 18:25
PROVIDERS: PCP Physician Assistant Medical; Visit Provider Physician Assistant Medical
DX: I10 Essential (primary) hypertension (principal)
CPT/HCPCS: 81003; 81015

== ENCOUNTER 2024-11-16 02:43 | Outpatient (CLI) | payer MEDICARE, BC, SELFPAY ==
--- NOTE | 2024-11-16 | DI.CT_ITS ---
Exam(s) CT ABDOMEN PELVIS W EXAM: CT ABDOMEN PELVIS W CLINICAL HISTORY: Abd pain, R10.9; ventral hernia wo obstruction or gangrene, K43.9. Of any recent instrumentation recommended. TECHNIQUE: Imaging Protocol: Axial computed tomography images with coronal and sagittal reformatted images were created and reviewed CONTRAST MATERIAL: Intravenous: Omnipaque-350 75cc Oral: Yes. Oral contrast was also administered for bowel opacification. COMPARISON: CT CT RENAL COLIC WO from 07/21/2021 FINDINGS: VISUALIZED LUNG BASES: No nodules nor pleural effusions evident. ABDOMEN: There is no ascites. LIVER: There are no focal hepatic lesions evident. No dilated intrahepatic ducts. GALLBLADDER/BILIARY: Gallbladder not seen and presumed to be surgically absent. CBD is not dilated. PANCREAS: No evidence of pancreatic mass nor dilatation of the pancreatic duct. SPLEEN: Spleen is not enlarged. No obvious intrasplenic lesions. Splenic and portal veins are paten t. ADRENALS: There are no significant adrenal masses. KIDNEYS:No cysts evident. No solid renal masses. No calculi nor hydronephrosis.. ABDOMINAL AORTA: Calcified but not enlarged. Mild arterial megaly of both common iliac arteries note d. No large aneurysms. LYMPH NODES:There is no retroperitoneal nor paraaortic adenopathy. ABDOMINAL WALL: There are multiple anterior abdominal wall midline and paramidline hernias. These co ntain fat. The most superior of midline hernias exhibits luminal wall of the transverse colon immedi ately adjacent to the neck of the hernia. None of the multiple anterior abdominal wall hernias conta ins fluid. There are also no independent subcutaneous fluid collections. There is no evidence of sm all-bowel obstruction. GI: The cecum is mobile. The ileocecal valve is above the level of the right iliac fossa. PELVIS: GI: No evidence of appendicitis.There is sigmoid diverticulosis but no obvious acute diverticulitis. LYMPH NODES: There is no intrapelvic nor inguinal adenopathy. REPRODUCTIVE: Uterus and adnexal regions appear age-appropriate. URINARY BLADDER: No calculi nor obvious masses evident. However, there is a small amount of air evid ent in the bladder lumen. Correlation with any recent instrumentation recommended. OSSEOUS: No fractures and no significant osseous lesions. Multilevel chronic degenerative disc disease. IMPRESSION: 1. There are multiple fat only containing anterior abdominal wall hernias, predominately midline. Th len do not contain bowel loops nor fluid although the anterior wall the transverse colon is in close proximity to the neck of one of these hernias. There is no evidence of bowel obstruction. No ascite s. 2. Sigmoid diverticulosis without evidence of acute diverticulitis. 3. There is small amount of air-gas seen in the urinary bladder lumen. No evidence of obvious mass n or radiopaque calculi in the urinary bladder lumen. Correlation with any history of recent bladder i nstrumentation recommended. Otherwise recommend urinalysis to rule out infection. RADIATION DOSE DELIVERED: 659.23mGy.cm Total DLP DATA REPOSITORY: All CT scans at this facility are submitted to the National Radiology Data Registry (NRDR) Dose Index Registry (DIR) with the [employer] ([employer]). RADIATION OPTIMIZATION: All CT scans at this facility use at least one of these dose optimization te chniques: automated exposure control; mA and/or kV adjustment per patient size (includes targeted exa ms where dose is matched to clinical indication); or iterative reconstruction.
[2024-11-16] MEDS: Barium Sulfate 2% W/V-Berry Smoothie 450 ML BTL PO (07:07)
[2024-11-16] MEDS: Barium Sulfate 2% W/V-Creamy Vanilla Smoothie 450 ML BTL PO (07:07)
[2024-11-16] MEDS: Normal Saline - Diluent 50 ML VIAL IJ (09:05)
[2024-11-16] MEDS: Omnipaque 350 MG/ML 500 ML BTL-Imaging package IJ (09:06)
== END 2024-11-16 03:03 ==
PROVIDERS: PCP Physician Assistant Medical; Visit Provider Physician Assistant Medical
DX: K57.30 Diverticulosis of large intestine without perforation or abscess without bleeding (principal); K45.8 Other specified abdominal hernia without obstruction or gangrene
CPT/HCPCS: 74177

== ENCOUNTER 2025-05-15 01:03 | Outpatient (CLI) | payer MEDICARE, BC, SELFPAY ==
--- NOTE | 2025-05-15 12:06 | DI.MAMMO_ITS ---
Exam(s) MAMMO SCREENING EXAM: MAMMO SCREENING CLINICAL HISTORY: Screening, Z12.31 TECHNIQUE: Mammograms were interpreted according to the usual protocol including computer analysis with CAD system, tomosynthesis and C-view imaging. COMPARISON: 2016 through 2021 FINDINGS: The breasts are composed of scattered fibroglandular densities, Breast Density category B. No suspicious masses or suspicious microcalcifications are seen. No skin thickening or abnormal axillary lymph nodes are seen. There has been no significant change from prior exams. IMPRESSION: BI-RADS Category 1, Negative mammogram Yearly screening mammography is recommended. Breast Density - Category B - There are scattered areas of fibroglandular density. Breast density Category C or D implies that the patient has dense breast tissue. Dense breast tissue can make it harder to find cancer on a mammogram. Dense breast tissue is also associated with an increased risk of breast cancer. This information about the result of the mammogram report was provided to the patient to raise their awareness. Use this report when you speak with the patient about their risks for breast cancer, which includes their family history. At that time, you may recommend additional screening tests (Ultrasound or MRI) as these tests may add significant information. A negative radiographic report should not delay biopsy if a dominant or clinically suspicious mass is present. Up to ten percent of cancers are not identified on mammography. A negative report may reinforce clinical impression. Adenosis and dense breasts may obscure an underlying neoplasm. False positive reports average 6 to 10%. Patient will receive a letter notifying them of these results.
== END 2025-05-15 01:23 ==
PROVIDERS: PCP Physician Assistant Medical; Visit Provider Physician Assistant Medical
DX: Z12.31 Encounter for screening mammogram for malignant neoplasm of breast (principal); R92.323 Mammographic fibroglandular density, bilateral breasts
CPT/HCPCS: 77063; 77067

== ENCOUNTER 2025-07-17 10:36 | Outpatient (CLI) | payer MEDICARE, BC, SELFPAY | END 2025-07-17 10:37 | disposition home or self-care (01) | PROVIDERS: PCP Physician Assistant Medical; Visit Provider Physician Assistant Medical | DX: I63.30 Cerebral infarction due to thrombosis of unspecified cerebral artery (principal) | CPT/HCPCS: 93246 ==

== ENCOUNTER 2025-08-07 07:24 | Outpatient (CLI) | payer MEDICARE, BC, SELFPAY ==
--- NOTE | 2025-08-07 13:01 | W.CARDEVENT ---
Date of service: 08/07/25 Time of Service: 13:01 Cardiac Event Recorder Referring Provider:: Xavier Guo Indications:: Cerebral infarction Cardiac Event Note: This is a cardiac event monitor. Patient was monitored for 12 days and 3 hours Predominant rhythm was sinus with an average heart rate of 63. Minimum was 42, maximum 114 There are very rare isolated ventricular ectopic beats. A 6 beat run of nonsustained ventricular tachycardia was seen There were occasional atrial premature beats. Self-limited atrial runs occurred. These were generally less than 10 beats in duration There was no atrial fibrillation, no high-grade AV block, no pauses greater than 3 seconds There were no patient symptoms
== END 2025-08-07 07:25 | disposition home or self-care (01) ==
LOC: CARDOPNVT 07:24
PROVIDERS: PCP Physician Assistant Medical; Visit Provider Internal Medicine Cardiovascular Disease
DX: I63.30 Cerebral infarction due to thrombosis of unspecified cerebral artery (principal); I47.29 Other ventricular tachycardia; I49.1 Atrial premature depolarization
CPT/HCPCS: 93248

== ENCOUNTER 2025-09-11 15:15 | Outpatient (REF) | payer MEDICARE, BC, SELFPAY ==
[2025-09-11 16:05] LABS: HCT 43.0 % (36.0-46.0); HGB 15.1 g/dL (11.2-15.7); MCH 32.1 pg (27.0-33.0); MCHC 35.1 % (32.0-36.0); MCV 91 fL (80-95); MPV 10.1 fL (8.0-11.0); Platelet Count 287 10^3/uL (130-400); RBC 4.71 10^6/uL (3.93-5.22); RDW 12.1 % (11.7-14.6); RDW-SD 40.5 fL; WBC 7.20 10^3/uL (4.4-10.8)
[2025-09-11 16:22] LABS: Vitamin D 25 Total 25 ng/mL (30-100)
[2025-09-11 16:26] LABS: ALT 34 U/L (10-49); AST 22 U/L (<34); Albumin 4.4 g/dL (3.2-5.0); Alkaline Phosphatase 74 U/L (46-116); Anion Gap 10.6 mmol/L (3-11); BUN 16 mg/dL (9-23); Bilirubin, Total 0.6 mg/dL (0.2-1.2); CO2 25.4 mmol/L (20.0-31.0); Calcium 9.7 mg/dL (8.3-10.6); Chloride 101 mmol/L (98-107); Cholesterol 115 mg/dL (<200); Glucose 274 mg/dL (74-106); HDL Cholesterol 38 mg/dL (>40); Potassium 4.2 mmol/L (3.5-5.1); Sodium 137 mmol/L (136-145); Total Protein 6.9 g/dL (5.7-8.2)
== END 2025-09-11 15:16 | disposition home or self-care (01) ==
LOC: NCHCN 15:15
PROVIDERS: PCP Physician Assistant Medical; Visit Provider Physician Assistant Medical
DX: I63.9 Cerebral infarction, unspecified (principal); I65.22 Occlusion and stenosis of left carotid artery; E55.9 Vitamin D deficiency, unspecified
CPT/HCPCS: 80053; 80061; 82306; 85027